=== PATIENT | male | born 1940 | race Caucasian/White ===

== ENCOUNTER 2018-04-05 18:03 | Inpatient (IN) | payer MEDICARE, OTHER ==
[~2018-04-05] VITALS: Ht 172.7 cm; Wt 72.7 kg
[~2018-04-05 18:03] MED LIST: ALBU6.7H INH; AMLO10TA PO; ASPI-611 PO; BUDE10.2 INH; FOLI1TAB16 PO; FURO-150 PO; IPRA3AMP9 NEB; LEVO500T89 PO; PHEN100C12 PO
[2018-04-05] MEDS ORDERED: normal saline 1000ML IV soln IV ONE (18:10)
[2018-04-05] MEDS ORDERED: ipratropium/albuterol 3ml nebule NEB ONE (18:10)
[2018-04-05] MEDS ORDERED: magnesium 2GM in 50ml NS 50 ML IV ONE (18:25)
[2018-04-05] MEDS ORDERED: methylPREDNISolone sod succ 125mg/2ml vial IV ONE (18:25)
[2018-04-05] MEDS ORDERED: vancomycin/NS 1 GM ADD-VANTAGE 250 ML IV ONE (18:25)
[2018-04-05] MEDS ORDERED: levoFLOXACIN-Levaquin 750MG/D5 150 ML IV ONE (18:25)
[2018-04-05 18:53] LABS: BASOPHILS # (AUTO) 0.1 X10'3 (0-0.2); BASOPHILS % (AUTO) 0.3 % (0-1); EOSINOPHILS % (AUTO) 0 % (0-6); HEMATOCRIT 24.9 % (42.0-52.0); HEMOGLOBIN 8.1 g/dl (14.0-17.9); LYMPHOCYTES # (AUTO) 0.7 X10'3 (1.1-4.8); LYMPHOCYTES % (AUTO) 3.2 % (21-51); MEAN CORPUSCULAR HEMOGLOBIN 31.2 PG (27.0-31.0); MEAN CORPUSCULAR HGB CONC 32.7 % (33.0-36.5); MEAN CORPUSCULAR VOLUME 95.6 FL (78-98); MEAN PLATELET VOLUME 7.1 FL (7.4-10.4); MONOCYTES # (AUTO) 1.9 X10'3 (0-0.9); MONOCYTES % (AUTO) 9.3 % (2-12); NEUTROPHILS % (AUTO) 87.2 % (42-75); PLATELET COUNT 313 X10'3 (140-440); RED CELL DISTRIBUTION WIDTH 14.2 % (11.5-14.5); WHITE BLOOD COUNT 20.6 X10'3 (4.5-11.0)
[2018-04-05 18:58] LABS: INR 0.9 INR; PARTIAL THROMBOPLASTIN TIME 26 SECONDS (22-32); PROTHROMBIN TIME 10.1 SECONDS (9.0-12.0)
[2018-04-05 19:07] LABS: ALANINE AMINOTRANSFERASE 64 U/L (12-78); ALBUMIN 2.9 G/DL (3.4-5.0); ALBUMIN/GLOBULIN RATIO 0.7 (1.1-1.5); ALKALINE PHOSPHATASE 79 IU/L (46-116); ANION GAP 12 (8-16); ASPARTATE AMINO TRANSFERASE 186 U/L (10-37); BILIRUBIN,TOTAL 0.6 MG/DL (0.1-1.0); BLOOD UREA NITROGEN 31 MG/DL (7-18); BUN/CREATININE RATIO 23.3 (5.4-32.0); CALCIUM 8.6 MG/DL (8.5-10.1); CHLORIDE 88 MMOL/L (99-107); CREATININE 1.33 MG/DL (0.60-1.10); GLUCOSE 106 MG/DL (70-104); POTASSIUM 4.5 MMOL/L (3.5-5.1); SODIUM 131 MMOL/L (135-145); TOTAL CARBON DIOXIDE 31.3 MMOL/L (24-32); TOTAL PROTEIN 7.3 G/DL (6.4-8.2); eGFR 52 ML/MIN
[2018-04-05 19:09] LABS: CREATINE KINASE 40 U/L (39-308); MAGNESIUM 1.7 MG/DL (1.5-2.4); PHOSPHORUS 3.8 MG/DL (2.3-4.5); TROPONIN I < 0.04 NG/ML (0.0-0.05)
--- NOTE | 2018-04-05 20:29 | NUR ---
AFTER PLACING TEMP PATEL, NO URINE OBTAINED. WILL CONTINUE TO MONITOR TO GET URINE SAMPLE SENT TO LAB.
[2018-04-05] MEDS ORDERED: magnesium hydroxide 30ml (MOM) UD suspension PO PRN (20:45)
[2018-04-05] MEDS ORDERED: acetaminophen 325mg tablet PO PRN (20:45)
[2018-04-05] MEDS ORDERED: mag hydrox/Alum hydrox/simeth 30ml oral suspension PO PRN (20:45)
[2018-04-05] MEDS ORDERED: HYDROcodone/acetaminophen 5mg/325mg tablet PO PRN (20:45)
[2018-04-05] MEDS ORDERED: morphine 4 MG/ML inj SYRINge IV PRN ×2 (20:45)
[2018-04-05] MEDS ORDERED: ondansetron/PF 4mg/2ml inj IV PRN (20:45)
[2018-04-05] MEDS: furosemide 10 MG/1 ML 10ml inj IV SCH (21:23)
--- NOTE | 2018-04-05 22:00 | NUR ---
Pt arrived to unit at 2200 via [facility] accompanied by RN. Pt stable upon arrival vitals within normal limits. Calm and receptive to care provided. Dr. Tobias HEDRICK at bedside upon pt arrival. ordered RT eval and treat. Will cont to monitor.
[2018-04-05 22:28] LABS: TOTAL CELLS COUNTED 100
[2018-04-05 22:29] LABS: PLATELET ESTIMATE NORMAL
[2018-04-05 23:00] VITALS: BP 118/56
[2018-04-05] MEDS: ipratropium/albuterol 3ml nebule NEB PRN (23:43)
[2018-04-06] VITALS (32 sets, daily range): BP systolic 90–158; BP diastolic 49–80
--- NOTE | 2018-04-06 00:02 | NUR ---
paged Dr. Tobias HEDRICK in regards to pt experiencing Afib with RVR rate in 150-160 sustaining. pending response. PAGER ID: [phone] MESSAGE: Tele [id number]-B Luke Moore 78/M. pt has been in A-fib with MD in 150s to mid 160s sustaining. please advise. MANI Hurst Tele# [phone]
[2018-04-06] MEDS ORDERED: digoxin 250mcg/ml 2ml ampule IV ONE ×2 (00:30→05:20)
--- NOTE | 2018-04-06 00:34 | NUR ---
Pt lung sounds wet, fluid volume excess. Paged Dr. Tobias HEDRICK requesting order for Lasix. PAGER ID: [phone] MESSAGE: Tele 3025-B Luke Moore Pt lungs also sound wet in upper lobes, may I get a order for IV Lasix. Aris RN #[phone]
[2018-04-06] MEDS ORDERED: furosemide 20 MG/2 ML vial IV ONE (00:45)
--- NOTE | 2018-04-06 05:13 | NUR ---
pt HR came down from 180s-190s down to 130s-140s. Paged and notified Dr. Tobias HEDRICK. Pending response. PAGER ID: [phone] MESSAGE: Tele 8099-B Luke Moore. FYI Pt Pulse rate hanging out in the 130s-140s. Please advise if you would like to try additional interventions to bring MA down further. thank you. Aris, RN #[phone]
[2018-04-06 05:28] LABS: ALBUMIN 2.1 G/DL (3.4-5.0); ANION GAP 9 (8-16); BLOOD UREA NITROGEN 29 MG/DL (7-18); BUN/CREATININE RATIO 27.4 (5.4-32.0); CALCIUM 7.9 MG/DL (8.5-10.1); CHLORIDE 92 MMOL/L (99-107); CREATININE 1.06 MG/DL (0.60-1.10); GLUCOSE 112 MG/DL (70-104); PHENYTOIN (DILANTIN) 1.8 UG/ML (10.0-20.0); POTASSIUM 4.4 MMOL/L (3.5-5.1); SODIUM 132 MMOL/L (135-145); TOTAL CARBON DIOXIDE 30.7 MMOL/L (24-32); eGFR 67 ML/MIN
[2018-04-06 05:39] LABS: BASOPHILS % (AUTO) 0 % (0-1); EOSINOPHILS # (AUTO) 0.1 X10'3 (0-0.9); EOSINOPHILS % (AUTO) 0.8 % (0-6); LYMPHOCYTES # (AUTO) 0.6 X10'3 (1.1-4.8); MEAN CORPUSCULAR HGB CONC 32.4 % (33.0-36.5); MEAN CORPUSCULAR VOLUME 95.6 FL (78-98); MEAN PLATELET VOLUME 7.2 FL (7.4-10.4); MONOCYTES # (AUTO) 0.3 X10'3 (0-0.9); MONOCYTES % (AUTO) 1.9 % (2-12); NEUTROPHILS # (AUTO) 13.2 X10'3 (1.8-7.7); NEUTROPHILS % (AUTO) 93.3 % (42-75); PLATELET COUNT 247 X10'3 (140-440); RED BLOOD COUNT 2.05 X10'6 (4.70-6.10); WHITE BLOOD COUNT 14.2 X10'3 (4.5-11.0)
[2018-04-06 05:48] LABS: HEMATOCRIT 19.6 % (42.0-52.0); HEMOGLOBIN 6.4 g/dl (14.0-17.9)
--- NOTE | 2018-04-06 05:55 | NUR ---
Paged Dr. Tobias HEDRICK in regards to Pt HH lab draw this morning resulting in 6.4/19.6, previous HH was 8.1/24.9. Pending response. PAGER ID: [phone] MESSAGE: Tele 2395-B Luke Moore. Critical low HH results of 6.4/19.6. HH previously 8.1/24.9. BP and O2 sat stable. Aris RN #[phone]
--- NOTE | 2018-04-06 07:04 | NUR ---
Problems reprioritized. Patient report given, questions answered & plan of care reviewed with MANI Cabrera.
[2018-04-06 07:06] LABS: MEAN CORPUSCULAR HEMOGLOBIN 31.2 PG (27.0-31.0); MEAN CORPUSCULAR HGB CONC 32.6 % (33.0-36.5); MEAN CORPUSCULAR VOLUME 95.5 FL (78-98); MEAN PLATELET VOLUME 7.1 FL (7.4-10.4); PLATELET COUNT 264 X10'3 (140-440); RED BLOOD COUNT 2.23 X10'6 (4.70-6.10); RED CELL DISTRIBUTION WIDTH 14.3 % (11.5-14.5); WHITE BLOOD COUNT 14.6 X10'3 (4.5-11.0)
[2018-04-06 07:11] LABS: HEMOGLOBIN 6.9 g/dl (14.0-17.9)
[2018-04-06 07:12] LABS: HEMATOCRIT 21.3 % (42.0-52.0)
--- NOTE | 2018-04-06 07:17 | NUR ---
PAGER ID: [phone] MESSAGE: Marija SINGLETON, [phone]. 3025B Pt. Oscar had a H/H of 6.9/ 21.3 Please advise, Thank you.
[2018-04-06] MEDS ORDERED: enoxaparin 40mg/0.4ml syringe SUBCUT SCH (08:00)
--- NOTE | 2018-04-06 10:06 | NUR ---
PAGER ID: [phone] MESSAGE: Deborah SINGLETON [phone] Oscar Pt has bloody diarrhea and does need a urologist consult, bladder is full.
[2018-04-06] MEDS ORDERED: LIDOcaine 2% 10ml TOPICAL JELLY (Urojet) MM STA (11:09)
--- NOTE | 2018-04-06 11:50 | NUR ---
UPON MORNING ASSESSMENT PT HAD WALTON RED HEMATURIA IN PATEL CATHETER BAG. AT 0900 PT WAS COMPLAINING OF INCREASING ABDOMINAL PAIN AND HAD SMALL AMOUNTS OF BLOOD COMING FROM HIS PENIS AROUND THE CATHETER. PT WAS ASSESSED FOR PLACEMENT AND IRRIGATED PER PROVIDER ORDER. PT WAS BLADDER SCANNED AND WAS FOUND TO HAVE OVER 1000ML IN BLADDER. CATHETER WAS REPLACED AND IRRIGATED AGAIN BY SEARCH AND RESCUE OFFICER. DR. PARNELL WAS NOTIFIED OF PT CONDITION AND CALLED UROLOGIST AT 1030. THE UROLOGIST DR. SAL ARRIVED TO UNIT AT 1110. DR. SAL WAS AT BEDSIDE WITH PT AND ASSESSED AND TREATED THE PT BY PLACING A NEW CATHETER AND IRRIGATING. RN'S TOLD TO IRRIGATE IF NECESSARY.
[2018-04-06] MEDS: cefepime 2g/NS 100ml ADVANTAGE 100 ML IV SCH ×2 (12:06→19:22)
[2018-04-06] MEDS: furosemide 10 MG/1 ML 10ml inj IV SCH ×2 (13:00→19:23)
[2018-04-06] MEDS: pantoprazole 40MG/NS 100ML BAG 100 ML IV SCH ×2 (13:01→19:23)
[2018-04-06 13:53] LABS: OCCULT BLOOD STOOL POSITIVE (Neg)
--- NOTE | 2018-04-06 14:10 | NUR ---
PAGER ID: [phone] MESSAGE: [id number] GIOVANY IS OCCULT STOOL POSSITIVE. HALI DENTON Addendum: 04/06/18 at 1410 by Hali Garsia RN Amended: Links added.
[2018-04-06] MEDS: ipratropium/albuterol 3ml nebule NEB PRN (15:43)
[2018-04-06 17:47] LABS: HEMATOCRIT 27.2 % (42.0-52.0); HEMOGLOBIN 9.1 g/dl (14.0-17.9); MEAN CORPUSCULAR HEMOGLOBIN 31.1 PG (27.0-31.0); MEAN CORPUSCULAR HGB CONC 33.4 % (33.0-36.5); MEAN CORPUSCULAR VOLUME 93.1 FL (78-98); MEAN PLATELET VOLUME 6.4 FL (7.4-10.4); PLATELET COUNT 256 X10'3 (140-440); RED BLOOD COUNT 2.92 X10'6 (4.70-6.10); RED CELL DISTRIBUTION WIDTH 14.6 % (11.5-14.5); WHITE BLOOD COUNT 12.8 X10'3 (4.5-11.0)
[2018-04-06] MEDS ORDERED: MIDAZolam 5mg/5ml vial ONE (17:59)
[2018-04-06] MEDS ORDERED: LIDOcaine Viscous 15ml cup ONE (17:59)
[2018-04-06] MEDS ORDERED: fentaNYL/PF 50MCG/1 ML 2ML syringe ONE (17:59)
--- NOTE | 2018-04-06 18:07 | NUR ---
UPON MORNING ASSESSMENT PT HAD WALTON HEMATURIA IN PATEL CATHETER BAG. AT 09 Addendum: 04/06/18 at 1826 by Marija Watt RN DISREGARD
[2018-04-06] MEDS: lactobacillus rhamnosus 10,000 MMU CELLS/CAPSULE PO SCH (20:00)
[2018-04-06] MEDS ORDERED: diltiazem 30mg tablet PO PRN (22:30)
[2018-04-07] MEDS: pantoprazole 40MG/NS 100ML BAG 100 ML IV SCH ×6 (01:00→21:00)
[2018-04-07 02:00] VITALS: BP 126/61
[2018-04-07 06:02] LABS: ALBUMIN 2.3 G/DL (3.4-5.0); ANION GAP 8 (8-16); BLOOD UREA NITROGEN 26 MG/DL (7-18); BUN/CREATININE RATIO 31.3 (5.4-32.0); CALCIUM 8.3 MG/DL (8.5-10.1); CHLORIDE 96 MMOL/L (99-107); CREATININE 0.83 MG/DL (0.60-1.10); GLUCOSE 121 MG/DL (70-104); POTASSIUM 3.8 MMOL/L (3.5-5.1); SODIUM 139 MMOL/L (135-145); TOTAL CARBON DIOXIDE 34.9 MMOL/L (24-32); eGFR 89 ML/MIN
[2018-04-07 06:29] LABS: BASOPHILS % (AUTO) 0 % (0-1); EOSINOPHILS # (AUTO) 0.1 X10'3 (0-0.9); HEMATOCRIT 28.5 % (42.0-52.0); HEMOGLOBIN 9.6 g/dl (14.0-17.9); LYMPHOCYTES # (AUTO) 0.6 X10'3 (1.1-4.8); LYMPHOCYTES % (AUTO) 4.5 % (21-51); MEAN CORPUSCULAR HEMOGLOBIN 31.5 PG (27.0-31.0); MEAN CORPUSCULAR HGB CONC 33.7 % (33.0-36.5); MEAN CORPUSCULAR VOLUME 93.4 FL (78-98); MEAN PLATELET VOLUME 6.5 FL (7.4-10.4); MONOCYTES # (AUTO) 1.9 X10'3 (0-0.9); MONOCYTES % (AUTO) 13.8 % (2-12); NEUTROPHILS % (AUTO) 80.7 % (42-75); PLATELET COUNT 264 X10'3 (140-440); RED BLOOD COUNT 3.05 X10'6 (4.70-6.10); RED CELL DISTRIBUTION WIDTH 15.6 % (11.5-14.5); WHITE BLOOD COUNT 13.6 X10'3 (4.5-11.0)
--- NOTE | 2018-04-07 06:55 | NUR ---
Problems reprioritized. Patient report given, questions answered & plan of care reviewed with Keli SINGLETON.
--- NOTE | 2018-04-07 06:58 | NUR ---
Patient in room PCU 3025. I have received report from Enmanuel SINGLETON and had the opportunity to ask questions and assume patient care, Patient resting comfortably was 99% on 4L turned patients O2 to 92% will recheck O2 Cannula in patients mouth.
[2018-04-07 07:15] VITALS: BP 110/69
[2018-04-07] MEDS: lactobacillus rhamnosus 10,000 MMU CELLS/CAPSULE PO SCH ×2 (07:48→20:00)
[2018-04-07] MEDS: furosemide 10 MG/1 ML 10ml inj IV SCH ×2 (07:49→20:47)
[2018-04-07] MEDS: cefepime 2g/NS 100ml ADVANTAGE 100 ML IV SCH ×2 (07:49→20:48)
[2018-04-07] MEDS: ipratropium/albuterol 3ml nebule NEB SCH ×4 (10:32→23:21)
--- NOTE | 2018-04-07 12:30 | NUR ---
Went to assess patient and patients bed was saturated with urine. Per MD orders ok to hand irrigate for clots irrigated jimenez with 60ml's sterile water and received approx 60ml's fluid around jimenez catheter insertion site. Patient has a 20F jimenez catheter in place. Paged Dr Fung for further orders.
[2018-04-07 12:58] VITALS: BP 123/61
[2018-04-07] MEDS ORDERED: hyoscyamine 0.125mg TAB.SUBL SL ONE (13:30)
--- NOTE | 2018-04-07 13:30 | NUR ---
Dr Wood called back aware that I had irrigated patient with fluid returning around the catheter itself. Received orders for a one time dose of Levsin SL for bladder spasms and to irrigate 30min after administration. Dr would also like us to get the urology cart to the floor in case we need it.
[2018-04-07] MEDS ORDERED: hyoscyamine 0.125mg TAB.SUBL SL PRN (14:30)
--- NOTE | 2018-04-07 14:30 | NUR ---
Dr Wood came to the floor and irrigated patient jimenez got 2 clots out. Stated to hand irrigate prn and give levsin if needing to irrigate again.
[2018-04-07 15:49] VITALS: BP 111/65
--- NOTE | 2018-04-07 18:19 | NUR ---
Problems reprioritized. Patient report given, questions answered & plan of care reviewed with Laverne SINGLETON.
--- NOTE | 2018-04-07 18:45 | NUR ---
Patient in room PCU 3025. I have received report from MANI Dickey and had the opportunity to ask questions and assume patient care.
[2018-04-07 19:00] VITALS: BP 123/53
[2018-04-07 23:00] VITALS: BP 111/57
[2018-04-08] MEDS: pantoprazole 40MG/NS 100ML BAG 100 ML IV SCH ×3 (01:00→11:46)
[2018-04-08 03:00] VITALS: BP 114/63
[2018-04-08] MEDS: ipratropium/albuterol 3ml nebule NEB SCH ×6 (03:12→23:08)
--- NOTE | 2018-04-08 06:19 | NUR ---
Problems reprioritized. Patient report given, questions answered & plan of care reviewed with MANI Myers.
--- NOTE | 2018-04-08 06:30 | NUR ---
Patient in room PCU 3025. I have received report from MANI Galloway and had the opportunity to ask questions and assume patient care.
[2018-04-08 07:00] VITALS: BP 122/65
[2018-04-08 07:07] LABS: BASOPHILS % (AUTO) 0.1 % (0-1); EOSINOPHILS # (AUTO) 0.1 X10'3 (0-0.9); EOSINOPHILS % (AUTO) 0.8 % (0-6); HEMATOCRIT 26.1 % (42.0-52.0); HEMOGLOBIN 8.4 g/dl (14.0-17.9); LYMPHOCYTES # (AUTO) 0.7 X10'3 (1.1-4.8); LYMPHOCYTES % (AUTO) 6.5 % (21-51); MEAN CORPUSCULAR HGB CONC 32.3 % (33.0-36.5); MEAN CORPUSCULAR VOLUME 92.9 FL (78-98); MEAN PLATELET VOLUME 6.4 FL (7.4-10.4); MONOCYTES # (AUTO) 1.5 X10'3 (0-0.9); MONOCYTES % (AUTO) 14.4 % (2-12); NEUTROPHILS # (AUTO) 8.2 X10'3 (1.8-7.7); NEUTROPHILS % (AUTO) 78.2 % (42-75); PLATELET COUNT 235 X10'3 (140-440); RED BLOOD COUNT 2.81 X10'6 (4.70-6.10); WHITE BLOOD COUNT 10.5 X10'3 (4.5-11.0)
[2018-04-08 07:10] LABS: ALBUMIN 2.1 G/DL (3.4-5.0); ANION GAP 5 (8-16); BLOOD UREA NITROGEN 17 MG/DL (7-18); BUN/CREATININE RATIO 23.9 (5.4-32.0); CALCIUM 8.2 MG/DL (8.5-10.1); CHLORIDE 99 MMOL/L (99-107); CREATININE 0.71 MG/DL (0.60-1.10); GLUCOSE 104 MG/DL (70-104); POTASSIUM 3.2 MMOL/L (3.5-5.1); SODIUM 142 MMOL/L (135-145); TOTAL CARBON DIOXIDE 37.7 MMOL/L (24-32); eGFR > 90 ML/MIN
[2018-04-08] MEDS: lactobacillus rhamnosus 10,000 MMU CELLS/CAPSULE PO SCH ×2 (08:00→20:00)
[2018-04-08] MEDS: cefepime 2g/NS 100ml ADVANTAGE 100 ML IV SCH ×2 (08:43→19:47)
[2018-04-08] MEDS: furosemide 10 MG/1 ML 10ml inj IV SCH (08:43)
[2018-04-08] MEDS: fluconazole-Diflucan 200mg/NS 100 ML IV SCH (09:52)
[2018-04-08 11:00] VITALS: BP 126/68
[2018-04-08] MEDS ORDERED: pantoprazole 40mg Tablet.DR PO SCH (12:20)
--- NOTE | 2018-04-08 12:36 | NUR ---
Paged Dr. Gilbert [facility] level. PAGER ID: [phone] MESSAGE: Pt Luke Moore in 1514H. K at 3.2, pt unable to tolerate PO meds at this time, no replacement protocol ordered. Thanks! Lucia SINGLETON [phone]
[2018-04-08] MEDS ORDERED: magnesium Cl slow-release 64mg tablet PO PRN (12:55)
[2018-04-08] MEDS ORDERED: magnesium 2GM in 50ml NS 50 ML IV PRN (12:55)
[2018-04-08] MEDS ORDERED: magnesium 4gm in 100ml NS 100 ML IV PRN (12:55)
[2018-04-08] MEDS ORDERED: potassium Cl 20 mEq SR tablet PO PRN ×2 (12:55)
[2018-04-08] MEDS ORDERED: potassium Cl 40MEQ/NS 500ml 500 ML IV PRN (12:55)
[2018-04-08 15:00] VITALS: BP 125/61
[2018-04-08] MEDS: potassium Cl 40MEQ/NS 500ml 500 ML IV PRN (16:10)
--- NOTE | 2018-04-08 18:31 | NUR ---
Problems reprioritized. Patient report given, questions answered & plan of care reviewed with MANI Galloway.
[2018-04-08 19:00] VITALS: BP 124/64
[2018-04-08] MEDS: pantoprazole 40 MG vial IV SCH (19:47)
[2018-04-08] MEDS: furosemide 40mg/4ml inj IV SCH (19:47)
[2018-04-08 23:00] VITALS: BP 126/73
[2018-04-09 03:00] VITALS: BP 114/66
[2018-04-09] MEDS: ipratropium/albuterol 3ml nebule NEB SCH ×6 (03:15→23:27)
[2018-04-09 05:32] LABS: BASOPHILS % (AUTO) 0.1 % (0-1); EOSINOPHILS # (AUTO) 0.1 X10'3 (0-0.9); EOSINOPHILS % (AUTO) 1.2 % (0-6); HEMATOCRIT 26.3 % (42.0-52.0); HEMOGLOBIN 8.7 g/dl (14.0-17.9); LYMPHOCYTES # (AUTO) 0.9 X10'3 (1.1-4.8); LYMPHOCYTES % (AUTO) 8.4 % (21-51); MEAN CORPUSCULAR HEMOGLOBIN 31.1 PG (27.0-31.0); MEAN CORPUSCULAR HGB CONC 33.1 % (33.0-36.5); MEAN PLATELET VOLUME 6.5 FL (7.4-10.4); MONOCYTES # (AUTO) 1.6 X10'3 (0-0.9); MONOCYTES % (AUTO) 15.6 % (2-12); NEUTROPHILS # (AUTO) 7.9 X10'3 (1.8-7.7); NEUTROPHILS % (AUTO) 74.7 % (42-75); PLATELET COUNT 231 X10'3 (140-440); RED CELL DISTRIBUTION WIDTH 14.9 % (11.5-14.5); WHITE BLOOD COUNT 10.5 X10'3 (4.5-11.0)
[2018-04-09 05:41] LABS: ALBUMIN 2.1 G/DL (3.4-5.0); ANION GAP 9 (8-16); BLOOD UREA NITROGEN 15 MG/DL (7-18); CALCIUM 8.4 MG/DL (8.5-10.1); CHLORIDE 99 MMOL/L (99-107); CREATININE 0.75 MG/DL (0.60-1.10); GLUCOSE 101 MG/DL (70-104); MAGNESIUM 1.3 MG/DL (1.5-2.4); POTASSIUM 3.1 MMOL/L (3.5-5.1); SODIUM 147 MMOL/L (135-145); TOTAL CARBON DIOXIDE 39.4 MMOL/L (24-32); eGFR > 90 ML/MIN
[2018-04-09 06:00] VITALS: BP 128/67
--- NOTE | 2018-04-09 06:12 | NUR ---
Patient in room PCU 3025. I have received report from MANI Galloway and had the opportunity to ask questions and assume patient care.
--- NOTE | 2018-04-09 06:18 | NUR ---
Problems reprioritized. Patient report given, questions answered & plan of care reviewed with MANI Ford.
[2018-04-09 07:29] LABS: TOTAL CELLS COUNTED 100
[2018-04-09 07:30] LABS: HYPOCHROMASIA 1+; PLATELET ESTIMATE NORMAL; TOXIC GRANULATION 1+
[2018-04-09] MEDS: pantoprazole 40 MG vial IV SCH ×2 (08:35→20:11)
[2018-04-09] MEDS: furosemide 40mg/4ml inj IV SCH ×2 (08:35→20:11)
[2018-04-09] MEDS: lactobacillus rhamnosus 10,000 MMU CELLS/CAPSULE PO SCH ×2 (08:35→20:11)
[2018-04-09] MEDS: cefepime 2g/NS 100ml ADVANTAGE 100 ML IV SCH ×2 (08:36→20:11)
[2018-04-09] MEDS: fluconazole-Diflucan 200mg/NS 100 ML IV SCH (09:01)
[2018-04-09] MEDS: potassium Cl 40MEQ/NS 500ml 500 ML IV PRN (10:36)
[2018-04-09 11:00] VITALS: BP 141/80
[2018-04-09 15:00] VITALS: BP 130/86
--- NOTE | 2018-04-09 18:12 | NUR ---
Problems reprioritized. Patient report given, questions answered & plan of care reviewed with MANI Allen.
--- NOTE | 2018-04-09 18:18 | NUR ---
Patient in room PCU 3025. I have received report from MANI Gibson and had the opportunity to ask questions and assume patient care.
[2018-04-09 19:00] VITALS: BP 158/62
--- NOTE | 2018-04-09 21:00 | NUR ---
paged rapid, pt difficult to arouse, responds to painful stimuli. ABG obtained, values concurrent with baseline. will continue to monitor
[2018-04-09 22:31] LABS: ABG BASE EXCESS 17.2 mmol/L (-2.0-3.0); ABG HCO3 43.6 mmol/L (22.0-26.0); ABG OXYGEN SATURATION 96.1 % (95-98); ABG PCO2 (T) 65.1 mmHg (35.0-48.0); ABG PH (T) 7.445 (7.350-7.450); ABG PO2 (T) 88.9 mmHg (83-108); ALLEN'S TEST Positive; FCOHb 0.3 % (0.5-1.5); FLOW 4 L/min; FMetHb 0.2 % (0.3-1.12); FO2Hb 95.6 % (94-100); PATIENT TEMPERATURE 37.2; TOTAL HEMOGLOBIN 9.7 G/dl (14.0-18.0)
[2018-04-09 23:00] VITALS: BP 127/68
[2018-04-10] MEDS: ipratropium/albuterol 3ml nebule NEB SCH ×5 (03:49→23:07)
[2018-04-10 05:41] LABS: BASOPHILS % (AUTO) 0.3 % (0-1); EOSINOPHILS # (AUTO) 0.1 X10'3 (0-0.9); EOSINOPHILS % (AUTO) 0.8 % (0-6); HEMATOCRIT 28.9 % (42.0-52.0); HEMOGLOBIN 9.4 g/dl (14.0-17.9); LYMPHOCYTES # (AUTO) 0.8 X10'3 (1.1-4.8); LYMPHOCYTES % (AUTO) 9.9 % (21-51); MEAN CORPUSCULAR HGB CONC 32.5 % (33.0-36.5); MEAN CORPUSCULAR VOLUME 95.4 FL (78-98); MEAN PLATELET VOLUME 6.6 FL (7.4-10.4); MONOCYTES # (AUTO) 1.5 X10'3 (0-0.9); MONOCYTES % (AUTO) 17.5 % (2-12); NEUTROPHILS % (AUTO) 71.5 % (42-75); PLATELET COUNT 211 X10'3 (140-440); RED BLOOD COUNT 3.03 X10'6 (4.70-6.10); RED CELL DISTRIBUTION WIDTH 13.6 % (11.5-14.5); WHITE BLOOD COUNT 8.4 X10'3 (4.5-11.0)
[2018-04-10 05:55] LABS: ALBUMIN 2.2 G/DL (3.4-5.0); BLOOD UREA NITROGEN 16 MG/DL (7-18); BUN/CREATININE RATIO 16.5 (5.4-32.0); CALCIUM 8.4 MG/DL (8.5-10.1); CHLORIDE 102 MMOL/L (99-107); CREATININE 0.97 MG/DL (0.60-1.10); GLUCOSE 119 MG/DL (70-104); MAGNESIUM 2.4 MG/DL (1.5-2.4); POTASSIUM 3.1 MMOL/L (3.5-5.1); SODIUM 149 MMOL/L (135-145); eGFR 75 ML/MIN
[2018-04-10 06:00] VITALS: BP 131/64
--- NOTE | 2018-04-10 06:11 | NUR ---
Patient in room PCU 3025. I have received report from MANI Galloway and had the opportunity to ask questions and assume patient care.
--- NOTE | 2018-04-10 06:23 | NUR ---
Problems reprioritized. Patient report given, questions answered & plan of care reviewed with MANI Ford.
[2018-04-10 06:27] LABS: ANION GAP 1 (8-16)
[2018-04-10 06:35] LABS: TOTAL CARBON DIOXIDE 46.3 MMOL/L (24-32)
--- NOTE | 2018-04-10 06:38 | NUR ---
Called Dr Pratt about CO2 46.3. Ask for previous level and later said "ok thanks." No new orders given.
[2018-04-10] MEDS: fluconazole-Diflucan 200mg/NS 100 ML IV SCH (08:00)
[2018-04-10] MEDS: furosemide 40mg/4ml inj IV SCH ×2 (08:00→20:05)
[2018-04-10] MEDS: cefepime 2g/NS 100ml ADVANTAGE 100 ML IV SCH ×2 (08:00→20:05)
[2018-04-10] MEDS: pantoprazole 40 MG vial IV SCH ×2 (08:00→20:05)
[2018-04-10] MEDS: lactobacillus rhamnosus 10,000 MMU CELLS/CAPSULE PO SCH ×2 (08:23→20:05)
--- NOTE | 2018-04-10 09:51 | NUR ---
Initial: Pt admitted with acute hypoxic resp failure, SOB, and GI bleed. Pt s/p endoscopy which shows Dottie esophagitis and nonbleeding gastric ulcer and gastritis per MD notes. Pt has had a BSS with recommendations of NPO and to reassess. SWEATBAND PERFORATOR did a repeat BSS 04/09 with recommendations of pureed diet with nectar thick liquids which pt is now receiving, per SWEATBAND PERFORATOR pt tolerating thickened liquids. Documented PO intake 75/25/25% at dinner last PM, only meal documented. CM requesting family meeting to discuss the possibility of feeding tube placement for pt as pt is unable to make own decisions per MD notes. Recommend continuing with PO diet with the addition of ONS if necessary in order to meet nutrient needs. LBM 04/09. No edema. Will continue to follow. Recommendations: 1) Continue with pureed nectar thick diet per SWEATBAND PERFORATOR 2) Monitor need for ONS 3) Wt per rx Addendum: 04/10/18 at [address] Amended: Links added.
[2018-04-10] MEDS: potassium Cl 40MEQ/NS 500ml 500 ML IV PRN (10:11)
[2018-04-10 11:00] VITALS: BP 106/52
[2018-04-10 14:31] LABS: ABG BASE EXCESS 22.1 mmol/L (-2.0-3.0); ABG HCO3 48.8 mmol/L (22.0-26.0); ABG OXYGEN SATURATION 89.9 % (95-98); ABG PCO2 (T) 67.9 mmHg (35.0-48.0); ABG PH (T) 7.474 (7.350-7.450); ABG PO2 (T) 54.2 mmHg (83-108); ALLEN'S TEST Positive; FCOHb 0.1 % (0.5-1.5); FLOW 3 L/min; FO2Hb 89.8 % (94-100); TOTAL HEMOGLOBIN 9.8 G/dl (14.0-18.0)
--- NOTE | 2018-04-10 14:36 | NUR ---
PAGER ID: [phone] MESSAGE: 3025B Luke Moore: TAWANA results are in. MANI Ford Ext [phone]
[2018-04-10 15:00] VITALS: BP 120/63
--- NOTE | 2018-04-10 18:28 | NUR ---
Problems reprioritized. Patient report given, questions answered & plan of care reviewed with MANI Hurst.
[2018-04-10 19:00] VITALS: BP 129/71
[2018-04-10] MEDS: acetaZOLAMIDE 250mg tablet PO SCH (22:56)
[2018-04-10 23:00] VITALS: BP 120/66
[2018-04-11] MEDS: ipratropium/albuterol 3ml nebule NEB SCH ×6 (02:44→23:00)
[2018-04-11 03:00] VITALS: BP 133/70
[2018-04-11 05:33] LABS: MAGNESIUM 1.9 MG/DL (1.5-2.4); POTASSIUM 3.1 MMOL/L (3.5-5.1)
[2018-04-11 06:00] VITALS: BP 126/69
--- NOTE | 2018-04-11 06:07 | NUR ---
Patient in room PCU 3025. I have received report from MANI Hurst and had the opportunity to ask questions and assume patient care.
--- NOTE | 2018-04-11 06:10 | NUR ---
Problems reprioritized. Patient report given, questions answered & plan of care reviewed with MANI Ford.
[2018-04-11] MEDS: acetaZOLAMIDE 250mg tablet PO SCH ×2 (07:51→20:18)
[2018-04-11] MEDS: lactobacillus rhamnosus 10,000 MMU CELLS/CAPSULE PO SCH ×2 (07:51→20:18)
[2018-04-11] MEDS: pantoprazole 40 MG vial IV SCH ×2 (07:52→20:18)
[2018-04-11] MEDS: fluconazole-Diflucan 200mg/NS 100 ML IV SCH (07:52)
[2018-04-11] MEDS: cefepime 2g/NS 100ml ADVANTAGE 100 ML IV SCH ×2 (07:52→20:25)
[2018-04-11] MEDS: furosemide 40mg/4ml inj IV SCH ×2 (07:52→20:18)
[2018-04-11] MEDS: potassium Cl 40MEQ/NS 500ml 500 ML IV PRN (10:57)
[2018-04-11 11:00] VITALS: BP 125/71
[2018-04-11 15:00] VITALS: BP 130/66
--- NOTE | 2018-04-11 18:28 | NUR ---
PAGER ID: [phone] MESSAGE: [phone] Pedro Sandovalchachasylvia. EKG done and in chart. Tolu Encarnacion said no stemi, but it is here if you want to take a look. MANI Ford Ext [phone] Addendum: 04/11/18 at 1840 by Logan Montgomery RN wrong patient
--- NOTE | 2018-04-11 18:30 | NUR ---
WLIIAN peter assessed EKG and said no Stemi. Addendum: 04/11/18 at 1840 by Logan Montgomery RN wrong patient
--- NOTE | 2018-04-11 18:30 | NUR ---
Patient in room PCU 3025. I have received report from MANI oFrd and had the opportunity to ask questions and assume patient care.
--- NOTE | 2018-04-11 18:38 | NUR ---
Problems reprioritized. Patient report given, questions answered & plan of care reviewed with MANI Myers.
[2018-04-11 19:00] VITALS: BP 121/74
[2018-04-11] MEDS: potassium Cl oral solution 20 MEQ/15 ML PO SCH (20:19)
[2018-04-11 23:00] VITALS: BP 115/71
[2018-04-12] MEDS: ipratropium/albuterol 3ml nebule NEB SCH ×6 (02:32→23:20)
[2018-04-12 03:00] VITALS: BP 129/75
[2018-04-12 05:47] LABS: MAGNESIUM 1.9 MG/DL (1.5-2.4)
[2018-04-12 06:00] VITALS: BP 130/66
--- NOTE | 2018-04-12 06:21 | NUR ---
Patient in room PCU 3025. I have received report from MANI Myers and had the opportunity to ask questions and assume patient care.
--- NOTE | 2018-04-12 06:27 | NUR ---
Problems reprioritized. Patient report given, questions answered & plan of care reviewed with MANI Richardson.
--- NOTE | 2018-04-12 07:03 | NUR ---
Notified Dr. Collado of critical K of 3.0 this am. awaiting further orders. patient stable, VSS. will continue to monitor.
[2018-04-12] MEDS: pantoprazole 40 MG vial IV SCH ×2 (07:24→20:23)
[2018-04-12] MEDS: potassium Cl oral solution 20 MEQ/15 ML PO SCH ×2 (07:25→20:21)
[2018-04-12] MEDS: furosemide 40mg/4ml inj IV SCH ×2 (07:25→20:23)
[2018-04-12] MEDS: lactobacillus rhamnosus 10,000 MMU CELLS/CAPSULE PO SCH ×2 (07:25→20:23)
[2018-04-12] MEDS: acetaZOLAMIDE 250mg tablet PO SCH ×2 (07:25→20:30)
[2018-04-12] MEDS: cefepime 2g/NS 100ml ADVANTAGE 100 ML IV SCH ×2 (07:26→20:30)
[2018-04-12] MEDS ORDERED: potassium Cl 20 mEq SR tablet PO PRN (08:15)
[2018-04-12] MEDS ORDERED: potassium Cl 40MEQ/NS 500ml 500 ML IV PRN ×2 (08:15)
[2018-04-12] MEDS: potassium Cl 20 mEq SR tablet PO PRN ×3 (09:02→20:23)
[2018-04-12] MEDS: fluconazole-Diflucan 200mg/NS 100 ML IV SCH (10:00)
[2018-04-12 11:00] VITALS: BP 146/75
--- NOTE | 2018-04-12 11:56 | NUR ---
Calorie count consult: Calorie count to start 04/12-04/15 dinner. D/w RN and dietary. Will continue to follow. Addendum: 04/12/18 at [address] Amended: Links added.
[2018-04-12 15:00] VITALS: BP 116/62
--- NOTE | 2018-04-12 18:35 | NUR ---
Problems reprioritized. Patient report given, questions answered & plan of care reviewed with MANI Myers.
[2018-04-12 19:00] VITALS: BP 110/55
[2018-04-12 23:00] VITALS: BP 119/71
[2018-04-13 03:00] VITALS: BP 103/66
[2018-04-13] MEDS: ipratropium/albuterol 3ml nebule NEB SCH ×6 (04:02→22:42)
[2018-04-13 06:00] VITALS: BP 133/63
--- NOTE | 2018-04-13 06:15 | NUR ---
Problems reprioritized. Patient report given, questions answered & plan of care reviewed with MANI Pizarro.
--- NOTE | 2018-04-13 07:02 | NUR ---
Patient in room PCU 3025. I have received report from Lucia SINGLETON and had the opportunity to ask questions and assume patient care.
[2018-04-13] MEDS: cefepime 2g/NS 100ml ADVANTAGE 100 ML IV SCH ×2 (08:43→20:24)
[2018-04-13] MEDS: fluconazole-Diflucan 200mg/NS 100 ML IV SCH (08:43)
[2018-04-13] MEDS: potassium Cl oral solution 20 MEQ/15 ML PO SCH ×2 (08:47→20:29)
[2018-04-13] MEDS: lactobacillus rhamnosus 10,000 MMU CELLS/CAPSULE PO SCH ×2 (08:47→20:30)
[2018-04-13] MEDS: acetaZOLAMIDE 250mg tablet PO SCH ×2 (08:47→20:30)
[2018-04-13] MEDS: furosemide 40mg/4ml inj IV SCH ×2 (08:47→20:29)
[2018-04-13] MEDS: pantoprazole 40 MG vial IV SCH ×2 (09:01→20:29)
[2018-04-13 11:00] VITALS: BP 139/64
--- NOTE | 2018-04-13 11:00 | NUR ---
Pt was re checked for pain and did not want pain medications at this time.
--- NOTE | 2018-04-13 14:38 | NUR ---
Problems reprioritized. Patient report given, questions answered & plan of care reviewed with Hali SINGLETON.
[2018-04-13 15:00] VITALS: BP 130/64
--- NOTE | 2018-04-13 15:20 | NUR ---
Calcount 04/13: Pending calcount papers from floors. Documented that pt ate only 50% of starch at breakfast this AM however documented intake 75% x all at lunch this afternoon. Per MD note pt tolerating modified diet. Will f/u tomorrow with patient's PO intake. Calorie count consult: Calorie count to start 04/12-04/15 dinner. D/w RN and dietary. Will continue to follow. Initial: Pt admitted with acute hypoxic resp failure, SOB, and GI bleed. Pt s/p endoscopy which shows Dottie esophagitis and nonbleeding gastric ulcer and gastritis per MD notes. Pt has had a BSS with recommendations of NPO and to reassess. AUTOMATIC SHIRRING MACHINE OPERATOR did a repeat BSS 04/09 with recommendations of pureed diet with nectar thick liquids which pt is now receiving, per AUTOMATIC SHIRRING MACHINE OPERATOR pt tolerating thickened liquids. Documented PO intake 75/25/25% at dinner last PM, only meal documented. CM requesting family meeting to discuss the possibility of feeding tube placement for pt as pt is unable to make own decisions per MD notes. Recommend continuing with PO diet with the addition of ONS if necessary in order to meet nutrient needs. LBM 04/09. No edema. Will continue to follow. Recommendations: 1) Continue with pureed nectar thick diet per AUTOMATIC SHIRRING MACHINE OPERATOR 2) Monitor need for ONS 3) Wt per rx Addendum: 04/13/18 at [address] Amended: Links added.
[2018-04-13 19:00] VITALS: BP 131/71
[2018-04-13 23:00] VITALS: BP 118/65
[2018-04-14] MEDS: ipratropium/albuterol 3ml nebule NEB SCH ×5 (02:52→23:00)
[2018-04-14 03:00] VITALS: BP 124/65
[2018-04-14 06:00] VITALS: BP 129/63
--- NOTE | 2018-04-14 06:40 | NUR ---
Problems reprioritized. Patient report given, questions answered & plan of care reviewed with MANI Rodriguez.
--- NOTE | 2018-04-14 06:57 | NUR ---
Patient in room PCU 3025. I have received report from MANI KRISHNA and had the opportunity to ask questions and assume patient care.
[2018-04-14] MEDS: lactobacillus rhamnosus 10,000 MMU CELLS/CAPSULE PO SCH ×2 (09:44→20:06)
[2018-04-14] MEDS: pantoprazole 40 MG vial IV SCH ×2 (09:44→20:05)
[2018-04-14] MEDS: cefepime 2g/NS 100ml ADVANTAGE 100 ML IV SCH ×2 (09:44→20:03)
[2018-04-14] MEDS: acetaZOLAMIDE 250mg tablet PO SCH ×2 (09:44→20:06)
[2018-04-14] MEDS: furosemide 40mg/4ml inj IV SCH ×2 (09:44→20:13)
[2018-04-14] MEDS: potassium Cl oral solution 20 MEQ/15 ML PO SCH ×2 (09:45→20:06)
[2018-04-14] MEDS: fluconazole-Diflucan 200mg/NS 100 ML IV SCH (10:44)
[2018-04-14 11:00] VITALS: BP 120/67
[2018-04-14 15:00] VITALS: BP 101/66
--- NOTE | 2018-04-14 15:58 | NUR ---
Calcount 04/14: Although documented that pt ate 75% of lunch yesterday, calorie count papers indicate pt refused lunch and consumed a total of 91 kcal and 1 g protein yesterday 04/13 not meeting nutrient needs. Pt seen at bedside denies any food preferences or ONS at this time. Encouraged pt to eat and think of food that he would like to eat. Pt without a BM since 04/09 which may be contributing to poor PO intake. Pt with MoM PRN not yet given, d/w RN, pt has now received MoM and routine Colace has been added to med list. Pt may benefit from appetite stimulant or nutrition support if he continues with such poor PO intake. Will continue to follow. Calcount 04/13: Pending calcount papers from floors. Documented that pt ate only 50% of starch at breakfast this AM however documented intake 75% x all at lunch this afternoon. Per MD note pt tolerating modified diet. Will f/u tomorrow with patient's PO intake. Calorie count consult: Calorie count to start 04/12-04/15 dinner. D/w RN and dietary. Will continue to follow. Initial: Pt admitted with acute hypoxic resp failure, SOB, and GI bleed. Pt s/p endoscopy which shows Dottie esophagitis and nonbleeding gastric ulcer and gastritis per MD notes. Pt has had a BSS with recommendations of NPO and to reassess. SURVEILLANCE OPERATOR did a repeat BSS 04/09 with recommendations of pureed diet with nectar thick liquids which pt is now receiving, per SURVEILLANCE OPERATOR pt tolerating thickened liquids. Documented PO intake 75/25/25% at dinner last PM, only meal documented. CM requesting family meeting to discuss the possibility of feeding tube placement for pt as pt is unable to make own decisions per MD notes. Recommend continuing with PO diet with the addition of ONS if necessary in order to meet nutrient needs. LBM 04/09. No edema. Will continue to follow. Recommendations: 1) Continue with pureed nectar thick diet per SURVEILLANCE OPERATOR 2) Monitor need for ONS 3) Encourage PO intake 4) Wt per rx Addendum: 04/14/18 at [address] Amended: Links added.
--- NOTE | 2018-04-14 16:15 | NUR ---
REPORT CALLED TO MANI MATTHEWS NEURO FLOOR.
--- NOTE | 2018-04-14 16:45 | NUR ---
TRANSFERRED TO NEURO FLOOR ROOM 4008A VIA WC. GARLAND CHANEY.
--- NOTE | 2018-04-14 17:09 | NUR ---
received report from Michael. patient was alert and oriented at time of arrival. patients vitals were taken along with skin check.
[2018-04-14 18:00] VITALS: BP 133/70
--- NOTE | 2018-04-14 19:33 | NUR ---
REPORT REC'D FROM MANI MATTHEWS.
[2018-04-14] MEDS: docusate sod 100mg capsule PO SCH (20:06)
[2018-04-14 22:00] VITALS: BP 124/60
[2018-04-15] MEDS: ipratropium/albuterol 3ml nebule NEB SCH ×6 (04:00→23:00)
--- NOTE | 2018-04-15 06:36 | NUR ---
REPORT GIVEN TO MANI MATTHEWS.
--- NOTE | 2018-04-15 06:43 | NUR ---
RECEIVED REPORT FROM OMAR SINGLETON
[2018-04-15 06:52] VITALS: BP 127/67
[2018-04-15] MEDS: cefepime 2g/NS 100ml ADVANTAGE 100 ML IV SCH (08:00)
[2018-04-15] MEDS: furosemide 40mg/4ml inj IV SCH ×2 (08:00→20:23)
[2018-04-15] MEDS: lactobacillus rhamnosus 10,000 MMU CELLS/CAPSULE PO SCH ×2 (08:00→20:22)
[2018-04-15] MEDS: fluconazole-Diflucan 200mg/NS 100 ML IV SCH (08:00)
[2018-04-15] MEDS: pantoprazole 40 MG vial IV SCH ×2 (08:00→20:23)
[2018-04-15] MEDS: acetaZOLAMIDE 250mg tablet PO SCH ×2 (08:00→20:22)
[2018-04-15] MEDS: potassium Cl oral solution 20 MEQ/15 ML PO SCH ×2 (08:00→20:22)
[2018-04-15] MEDS: docusate sod 100mg capsule PO SCH ×2 (08:00→20:22)
--- NOTE | 2018-04-15 11:21 | NUR ---
Calcount 04/15: Pt refused all meals w/ 0% PO yesterday not meeting needs. Per MD note pt shares he doesn't want to eat but unsure why he doesn't feel like eating. First BM today since 04/09 per RN report. Dottie esophagitis upper third per MD note w/ non-bleeding gastric ulcer. [place] thickened high protein smoothie made w/ magic cup and thickened milk TIDWM added for additional protein/kcal needs and will be easier on throat. Given PO hx since admit and associated minor fat/muscle wasting pt qualifies for severe malnutrition at this time; MD notified. Recommendations: 1) Continue with pureed nectar thick diet per NURSING CONSULTANT 2) thickened high protein smoothie TIDWM w/ magic cup 3) Encourage PO intake 4) weekly wts Addendum: 04/15/18 at [address] Amended: Links added.
[2018-04-15 18:00] VITALS: BP 112/67
[2018-04-15 22:00] VITALS: BP 110/66
[2018-04-16] MEDS: ipratropium/albuterol 3ml nebule NEB SCH ×6 (03:00→23:00)
[2018-04-16 06:00] VITALS: BP 102/64
--- NOTE | 2018-04-16 06:08 | NUR ---
REPORT GIVEN TO MANI MATTHEWS.
[2018-04-16] MEDS: furosemide 40mg/4ml inj IV SCH ×2 (07:55→19:46)
[2018-04-16] MEDS: docusate sod 100mg capsule PO SCH ×2 (08:00→20:00)
[2018-04-16] MEDS: acetaZOLAMIDE 250mg tablet PO SCH ×2 (08:00→19:46)
[2018-04-16] MEDS: potassium Cl oral solution 20 MEQ/15 ML PO SCH ×2 (08:00→19:46)
[2018-04-16] MEDS: pantoprazole 40 MG vial IV SCH ×2 (08:00→19:46)
[2018-04-16] MEDS: fluconazole-Diflucan 200mg/NS 100 ML IV SCH (08:00)
[2018-04-16] MEDS: lactobacillus rhamnosus 10,000 MMU CELLS/CAPSULE PO SCH ×2 (08:00→19:46)
[2018-04-16 10:00] VITALS: BP 123/53
--- NOTE | 2018-04-16 10:13 | NUR ---
Calcount 04/15: Pt PO increased w/ thickened high pro smoothie. Only received kcal count form for dinner 04/15; additional intake averaged given documented PO meals. Total intake ~1283kcals, 50g protein almost meeting protein needs. Will continue thickened ONS and monitor for additional ONS needs. LBM 04/15. Recommendations: 1) Continue with pureed nectar thick diet per MACHINE ASSEMBLER SUPERVISOR 2) thickened high protein smoothie TIDWM w/ magic cup 3) Encourage PO intake 4) weekly wts Addendum: 04/16/18 at [address] Amended: Links added.
[2018-04-16 18:00] VITALS: BP 108/64
--- NOTE | 2018-04-16 18:32 | NUR ---
REPORT REC'D FROM MANI MATTHEWS.
[2018-04-16 22:00] VITALS: BP 100/54
[2018-04-17] MEDS: ipratropium/albuterol 3ml nebule NEB SCH ×3 (02:59→12:16)
[2018-04-17 06:00] VITALS: BP 119/64
--- NOTE | 2018-04-17 06:05 | NUR ---
Patient in room ORTHO 4008. I have received report from OMAR SINGLETON and had the opportunity to ask questions and assume patient care.
--- NOTE | 2018-04-17 06:33 | NUR ---
REPORT GIVEN TO MANI WELCH.
[2018-04-17] MEDS: furosemide 40mg/4ml inj IV SCH (08:43)
[2018-04-17] MEDS: pantoprazole 40 MG vial IV SCH ×2 (08:43→19:24)
[2018-04-17] MEDS: fluconazole-Diflucan 200mg/NS 100 ML IV SCH (08:46)
[2018-04-17] MEDS: lactobacillus rhamnosus 10,000 MMU CELLS/CAPSULE PO SCH ×2 (09:45→19:24)
[2018-04-17] MEDS: acetaZOLAMIDE 250mg tablet PO SCH ×2 (09:45→19:24)
[2018-04-17] MEDS: docusate sod 100mg capsule PO SCH ×2 (09:45→19:24)
[2018-04-17] MEDS: potassium Cl oral solution 20 MEQ/15 ML PO SCH ×2 (09:49→19:24)
[2018-04-17 10:00] VITALS: BP 111/60
--- NOTE | 2018-04-17 12:20 | NUR ---
SS met w/pt & family member (nephew) @ pt's bedside. Pt was alert & oriented to person, place & situation. Pt is now eating again where as previously he had failed swallow tests. SS utilized CBT strategies & engage pt & nephew in dcp activities. Per discussion, nephew is now comfortable to have pt d/c home. Plan: CM will look into ordering a hospital bed & HH services. SS contacted the [facility] to obtain a post-hosp appointment for pt w/his PMD & request for IH services for pt. Pt completed necessary paperwork w/[facility] to re-certify his MediCal D/C destination is home. SS will continue to monitor to support dcp.
[2018-04-17 18:00] VITALS: BP 161/45
--- NOTE | 2018-04-17 18:00 | NUR ---
Problems reprioritized. Patient report given, questions answered & plan of care reviewed with NATHAN SINGLETON.
--- NOTE | 2018-04-17 18:50 | NUR ---
Patient in room ORTHO 4008. I have received report from MANI Armstrong and had the opportunity to ask questions and assume patient care. Patient sitting up and eating dinner at this time.
[2018-04-17] MEDS: furosemide 20MG tablet PO SCH (19:24)
[2018-04-17 22:06] VITALS: BP 118/64
[2018-04-18 06:00] VITALS: BP 107/54
--- NOTE | 2018-04-18 06:06 | NUR ---
Patient in room ORTHO 4008. I have received report from NATHAN SINGLETON and had the opportunity to ask questions and assume patient care.
--- NOTE | 2018-04-18 06:09 | NUR ---
Problems reprioritized. Patient report given, questions answered & plan of care reviewed with MANI Armstrong.
[2018-04-18] MEDS: lactobacillus rhamnosus 10,000 MMU CELLS/CAPSULE PO SCH ×2 (08:02→19:34)
[2018-04-18] MEDS: potassium Cl oral solution 20 MEQ/15 ML PO SCH ×2 (08:02→19:35)
[2018-04-18] MEDS: pantoprazole 40 MG vial IV SCH (08:02)
[2018-04-18] MEDS: docusate sod 100mg capsule PO SCH ×2 (08:02→19:35)
[2018-04-18] MEDS: furosemide 20MG tablet PO SCH ×2 (08:02→19:35)
[2018-04-18] MEDS: fluconazole-Diflucan 200mg/NS 100 ML IV SCH (08:02)
[2018-04-18] MEDS: acetaZOLAMIDE 250mg tablet PO SCH ×2 (08:02→19:34)
[2018-04-18 08:23] LABS: BASOPHILS # (AUTO) 0.1 X10'3 (0-0.2); BASOPHILS % (AUTO) 1.3 % (0-1); EOSINOPHILS # (AUTO) 0.1 X10'3 (0-0.9); HEMATOCRIT 28.5 % (42.0-52.0); HEMOGLOBIN 9.4 g/dl (14.0-17.9); LYMPHOCYTES # (AUTO) 1.4 X10'3 (1.1-4.8); MEAN CORPUSCULAR HEMOGLOBIN 30.8 PG (27.0-31.0); MEAN CORPUSCULAR HGB CONC 33.2 % (33.0-36.5); MEAN CORPUSCULAR VOLUME 92.7 FL (78-98); MEAN PLATELET VOLUME 8.6 FL (7.4-10.4); MONOCYTES # (AUTO) 0.7 X10'3 (0-0.9); MONOCYTES % (AUTO) 11.8 % (2-12); NEUTROPHILS # (AUTO) 3.6 X10'3 (1.8-7.7); NEUTROPHILS % (AUTO) 60.9 % (42-75); PLATELET COUNT 182 X10'3 (140-440); RED BLOOD COUNT 3.07 X10'6 (4.70-6.10); RED CELL DISTRIBUTION WIDTH 14.3 % (11.5-14.5); WHITE BLOOD COUNT 5.9 X10'3 (4.5-11.0)
[2018-04-18 08:35] LABS: ALBUMIN 2.7 G/DL (3.4-5.0); ANION GAP 8 (8-16); BLOOD UREA NITROGEN 29 MG/DL (7-18); CALCIUM 8.5 MG/DL (8.5-10.1); CHLORIDE 105 MMOL/L (99-107); CREATININE 1.26 MG/DL (0.60-1.10); GLUCOSE 96 MG/DL (70-104); POTASSIUM 3.6 MMOL/L (3.5-5.1); SODIUM 143 MMOL/L (135-145); TOTAL CARBON DIOXIDE 30.4 MMOL/L (24-32); eGFR 55 ML/MIN
[2018-04-18 18:00] VITALS: BP 114/73
--- NOTE | 2018-04-18 18:08 | NUR ---
Problems reprioritized. Patient report given, questions answered & plan of care reviewed with NATHAN SINGLETON.
[2018-04-18] MEDS: pantoprazole 40mg Tablet.DR PO SCH (19:34)
[2018-04-18 22:04] VITALS: BP 126/63
[2018-04-19 06:00] VITALS: BP 116/62
--- NOTE | 2018-04-19 06:10 | NUR ---
Patient in room ORTHO 4008. I have received report from NATHAN SINGLETON and had the opportunity to ask questions and assume patient care.
--- NOTE | 2018-04-19 06:30 | NUR ---
Problems reprioritized. Patient report given, questions answered & plan of care reviewed with MANI Armstrong.
[2018-04-19] MEDS: lactobacillus rhamnosus 10,000 MMU CELLS/CAPSULE PO SCH ×2 (08:44→19:58)
[2018-04-19] MEDS: furosemide 20MG tablet PO SCH ×2 (08:45→19:58)
[2018-04-19] MEDS: acetaZOLAMIDE 250mg tablet PO SCH ×2 (08:45→19:58)
[2018-04-19] MEDS: pantoprazole 40mg Tablet.DR PO SCH ×2 (08:45→19:58)
[2018-04-19] MEDS: potassium Cl oral solution 20 MEQ/15 ML PO SCH ×2 (08:45→19:58)
[2018-04-19] MEDS: fluconazole-Diflucan 200mg/NS 100 ML IV SCH (08:47)
[2018-04-19] MEDS: docusate sod 100mg capsule PO SCH ×2 (08:47→19:58)
[2018-04-19 10:00] VITALS: BP 114/61
--- NOTE | 2018-04-19 10:07 | NUR ---
Reassessment: Per AUTOMATION/CONTROLS MANAGER notes pt now tolerating pureed food with thin liquid. Documented PO intake seems to have improved with average intake 50%, although noted that pt refused breakfast this AM. Per MD progress notes pt likely to d/c home soon with [facility]. Will continue to follow. Recommendations: 1) Continue with pureed thin liquid diet per AUTOMATION/CONTROLS MANAGER 2) thickened high protein smoothie TIDWM w/ magic cup 3) Encourage PO intake 4) weekly wts Addendum: 04/19/18 at [address] Amended: Links added.
--- NOTE | 2018-04-19 12:32 | NUR ---
SS met w/pt & family member this morning to review dcp. Per discussion, pt's hospital bed will be delivered to the home either today or tomorrow, [facility], Pt's nephew will attend the post hosp appointment with pt to request [facility]. Pt's nephew brought in additional financial documents to complete pt's MediCal keira. SS will continue to monitor to support dcp.
[2018-04-19 18:00] VITALS: BP 143/79
--- NOTE | 2018-04-19 18:12 | NUR ---
Problems reprioritized. Patient report given, questions answered & plan of care reviewed with MARIANELA SINGLETON.
--- NOTE | 2018-04-19 18:28 | NUR ---
PATIENT REPORT RECEIVED FROM VANDANA SINGLETON.
[2018-04-19 22:00] VITALS: BP 127/77
[2018-04-20 06:00] VITALS: BP 118/71
--- NOTE | 2018-04-20 06:47 | NUR ---
PATIENT REPORT GIVEN TO CISCO SINGLETON.
--- NOTE | 2018-04-20 07:07 | NUR ---
Patient in room ORTHO 4008. I have received report from Isi Jimenez and had the opportunity to ask questions and assume patient care.
[2018-04-20] MEDS: acetaZOLAMIDE 250mg tablet PO SCH (08:36)
[2018-04-20] MEDS: lactobacillus rhamnosus 10,000 MMU CELLS/CAPSULE PO SCH (08:36)
[2018-04-20] MEDS: fluconazole-Diflucan 200mg/NS 100 ML IV SCH (08:36)
[2018-04-20] MEDS: docusate sod 100mg capsule PO SCH (08:36)
[2018-04-20] MEDS: potassium Cl oral solution 20 MEQ/15 ML PO SCH (08:37)
[2018-04-20] MEDS: pantoprazole 40mg Tablet.DR PO SCH (08:37)
[2018-04-20] MEDS: furosemide 20MG tablet PO SCH (08:41)
[2018-04-20 08:42] VITALS: BP 111/71
[2018-04-20 10:00] VITALS: BP 134/80
[2018-04-20] MEDS ORDERED: PANT40TA4 PO (12:08)
[2018-04-20] MEDS ORDERED: ACET250T3 PO (12:08)
[2018-04-20] MEDS ORDERED: HYOS0.1277 SL (12:08)
[2018-04-20] MEDS ORDERED: POTA10TA10 PO (12:11)
--- NOTE | 2018-04-20 12:39 | NUR ---
Patient discharged home with all belongings, Verna cargo picked patient up in wheelchair, paper RX sent with patient, IV taken out, d/c instructions went over with nephew
--- NOTE | 2018-04-22 09:34 | NUR ---
Pt. d/c'd home with nephew, [facility] will meet pt tomorrow @ home. SS referral closed.
== END 2018-04-20 12:33 | disposition home health service (06) | DRG 871 ==
LOC: ER 18:06 → ED HOLD 20:43 → PCU 3S 22:11 → ORTHO 4S 04-14 16:45
PROVIDERS: ADMIT Internal Medicine; ATTEND Internal Medicine
PROC: 30233N1 Transfusion of Nonautologous Red Blood Cells into Peripheral Vein, Percutaneous Approach (ICD-10-PCS; principal; 2018-04-06)
PROC: 0T9B80Z Drainage of Bladder with Drainage Device, Via Natural or Artificial Opening Endoscopic (ICD-10-PCS; 2018-04-06)
PROC: 0DB18ZX Excision of Upper Esophagus, Via Natural or Artificial Opening Endoscopic, Diagnostic (ICD-10-PCS; 2018-04-06)
PROC: 0DB68ZX Excision of Stomach, Via Natural or Artificial Opening Endoscopic, Diagnostic (ICD-10-PCS; 2018-04-06)
DX: A41.9 Sepsis, unspecified organism (principal); J96.21 Acute and chronic respiratory failure with hypoxia; J18.1 Lobar pneumonia, unspecified organism; T83.83XA Hemorrhage due to genitourinary prosthetic devices, implants and grafts, initial encounter; D62 Acute posthemorrhagic anemia; B37.81 Candidal esophagitis; J44.0 Chronic obstructive pulmonary disease with (acute) lower respiratory infection; J44.1 Chronic obstructive pulmonary disease with (acute) exacerbation; N17.9 Acute kidney failure, unspecified; N13.8 Other obstructive and reflux uropathy; E87.2 Acidosis; Y84.6 Urinary catheterization as the cause of abnormal reaction of the patient, or of later complication, without mention of misadventure at the time of the procedure; K25.9 Gastric ulcer, unspecified as acute or chronic, without hemorrhage or perforation; E87.6 Hypokalemia; F10.20 Alcohol dependence, uncomplicated; F17.210 Nicotine dependence, cigarettes, uncomplicated; R33.9 Retention of urine, unspecified; N40.1 Benign prostatic hyperplasia with lower urinary tract symptoms; N48.89 Other specified disorders of penis; I11.0 Hypertensive heart disease with heart failure; I27.29 Other secondary pulmonary hypertension; I50.9 Heart failure, unspecified; K29.70 Gastritis, unspecified, without bleeding; R31.0 Gross hematuria; Z66 Do not resuscitate; Z79.51 Long term (current) use of inhaled steroids; Z82.49 Family history of ischemic heart disease and other diseases of the circulatory system; Z83.3 Family history of diabetes mellitus; Z86.73 Personal history of transient ischemic attack (TIA), and cerebral infarction without residual deficits; Z87.11 Personal history of peptic ulcer disease; Y92.89 Other specified places as the place of occurrence of the external cause
CPT/HCPCS: 36415; 36600; 43239; 71045; 80048; 80053; 80185; 82272; 82550; 82803; 82948; 83605; 83735; 83880; 84100; 84132; 84145; 84484; 85018; 85025; 85027; 85610; 85730; 86885; 86900; 86901; 86920; 87040; 87070; 87502; 87503; 88305; 88312; 92616; 93005; 93306; 94640; 94760; 96365; 96367; 96368; 96375; 97110; 97116; 97162; 97530; 99152; 99291; A4620; C9113; G0378; J0692; J1160; J1450; J1940; J1956; J2250; J2270; J2930; J3010; J3370; J3475; J3480; J7030; P9016

== ENCOUNTER 2018-07-21 13:20 | Inpatient (IN) | payer MEDICARE, MEDICAID ==
[~2018-07-21] VITALS: Ht 170.2 cm; Wt 81.0 kg
--- NOTE | 2018-07-21 | NUR ---
PATIENT ARRIVED ON UNIT VIA GURNEY. PATIENT HARD OF HEARING. MAINTENANCE FLUIDS RUNNING. HIGH BLOOD PRESSURE. NOTIFIED. HYDRALAZINE GIVEN. BELONGING AT BEDSIDE. PATEL IN PLACE. ON TELE. BED ALARM ON.
[~2018-07-21 13:20] MED LIST changes: +ACET250T3 PO; -AMLO10TA PO; +HYOS0.1277 SL; -LEVO500T89 PO; +PANT40TA4 PO
[2018-07-21] MEDS ORDERED: normal saline 1000ML IV soln IV ONE (13:30)
[2018-07-21] MEDS ORDERED: normal saline 1000ML IV soln IVB ONE (13:30)
[2018-07-21] MEDS ORDERED: CefTRIAXone 2gm/D5W 50ml 50 ML IV ONE (13:30)
--- NOTE | 2018-07-21 13:50 | NUR ---
Called patients nephewOscar, who stated that around 1130 today patient began to have difficulty breathing and was stating that he could not breath. Per family patient has been fine prior to this. Patient does have a home health nurse that comes out to see him daily, but Oscar states that she "just cleans him up." Oscar denies patient having any fevers, states that he has had a intermittent productive cough. Oscar gave me the list of patients medications at which I updated in patients chart. States that he has had a history of seizures, but does not see any medications for seizures currently. Rohan SINGLETON aware of conversation with family.
[2018-07-21 13:56] LABS: BASOPHILS % (AUTO) 0.5 % (0-1); EOSINOPHILS # (AUTO) 0.1 X10'3 (0-0.9); EOSINOPHILS % (AUTO) 1.4 % (0-6); HEMATOCRIT 36.8 % (42.0-52.0); HEMOGLOBIN 12.1 g/dl (14.0-17.9); LYMPHOCYTES # (AUTO) 0.6 X10'3 (1.1-4.8); MEAN CORPUSCULAR HEMOGLOBIN 29.4 PG (27.0-31.0); MEAN CORPUSCULAR HGB CONC 32.9 g/dL (33.0-36.5); MEAN CORPUSCULAR VOLUME 89.3 FL (78-98); MEAN PLATELET VOLUME 7.8 FL (7.4-10.4); MONOCYTES # (AUTO) 0.5 X10'3 (0-0.9); MONOCYTES % (AUTO) 8.2 % (2-12); NEUTROPHILS # (AUTO) 5.1 X10'3 (1.8-7.7); NEUTROPHILS % (AUTO) 80.9 % (42-75); PLATELET COUNT 237 X10'3 (140-440); RED BLOOD COUNT 4.12 X10'6 (4.70-6.10); RED CELL DISTRIBUTION WIDTH 14.6 % (11.5-14.5); WHITE BLOOD COUNT 6.3 X10'3 (4.5-11.0)
[2018-07-21 14:05] LABS: PARTIAL THROMBOPLASTIN TIME 25 SECONDS (22-32)
[2018-07-21 14:09] LABS: ALANINE AMINOTRANSFERASE 42 U/L (12-78); ALBUMIN 3.7 G/DL (3.4-5.0); ALBUMIN/GLOBULIN RATIO 1.1 (1.1-1.5); ALKALINE PHOSPHATASE 60 IU/L (46-116); ANION GAP 8 (8-16); ASPARTATE AMINO TRANSFERASE 52 U/L (10-37); BILIRUBIN,TOTAL 0.4 MG/DL (0.1-1.0); BLOOD UREA NITROGEN 14 MG/DL (7-18); BUN/CREATININE RATIO 13.9 (5.4-32.0); CHLORIDE 100 MMOL/L (99-107); CREATININE 1.01 MG/DL (0.60-1.10); GLUCOSE 127 MG/DL (70-104); MAGNESIUM 1.5 MG/DL (1.5-2.4); SODIUM 137 MMOL/L (135-145); TOTAL CARBON DIOXIDE 28.7 MMOL/L (24-32); TOTAL PROTEIN 7.2 G/DL (6.4-8.2); eGFR 71 ML/MIN
[2018-07-21 14:39] LABS: CLARITY,URINE CLOUDY (Clear); COLOR,URINE YELLOW (Yellow); GLUCOSE, URINE NEGATIVE (Neg); KETONES,URINE NEGATIVE (Neg); LEUKOCYTE ESTERASE ,URINE MODERATE (Neg); NITRITES, URINE NEGATIVE (Neg); OCCULT BLOOD,URINE LARGE (Neg); PROTEIN,URINE NEGATIVE (Neg); UROBILINOGEN,URINE 0.2 E.U/dL (0.2-1.0)
[2018-07-21 14:42] LABS: UA COLLECTION TYPE FOLEY CATH
[2018-07-21 14:52] LABS: BACTERIA,URINE FEW /HPF (Neg); MUCUS STRANDS NONE SEEN /LPF (Neg); RBC,URINE TNTC /HPF (0-2); SQUAMOUS EPITHELIAL CELL,UR NONE SEEN /LPF (FEW); TRANSITIONAL EPI CELLS,URINE FEW /HPF; WBC,URINE 30-50 /HPF (0-4)
[2018-07-21 14:53] LABS: HYALINE CASTS 0-3 /LPF (NEGATIVE)
[2018-07-21 15:05] LABS: ETHANOL < 0.010 GM/DL (0.0-0.010)
[2018-07-21 16:11] LABS: URINE AMPHETAMINE SCREEN POSITIVE (Neg); URINE BARBITUATE SCREEN NEGATIVE (Neg); URINE BENZODIAZEPINES SCREEN NEGATIVE (Neg); URINE CANNABINOID SCREEN NEGATIVE (Neg); URINE COCAINE SCREEN NEGATIVE (Neg); URINE METHADONE SCREEN NEGATIVE (Neg); URINE OPIATE SCREEN NEGATIVE (Neg); URINE PHENCYCLIDINE SCREEN NEGATIVE (Neg)
[2018-07-21] MEDS ORDERED: acetaminophen 650mg rectal suppository RC PRN (17:00)
[2018-07-21] MEDS ORDERED: magnesium 4gm in 100ml NS 100 ML IV PRN (17:00)
[2018-07-21] MEDS ORDERED: potassium Cl 40MEQ/NS 500ml 500 ML IV PRN ×2 (17:00)
[2018-07-21] MEDS ORDERED: magnesium 2GM in 50ml NS 50 ML IV PRN (17:00)
[2018-07-21] MEDS ORDERED: potassium Cl 20 mEq SR tablet PO PRN (17:00)
[2018-07-21] MEDS ORDERED: ondansetron/PF 4mg/2ml inj IV PRN (17:00)
[2018-07-21] MEDS ORDERED: pantoprazole 40 MG vial IV ONE (17:05)
[2018-07-21 17:20] LABS: PHENYTOIN (DILANTIN) < 0.5 UG/ML (10.0-20.0)
[2018-07-21] MEDS ORDERED: ACET250T3 PO (17:21)
[2018-07-21] MEDS ORDERED: PANT40TA4 PO (17:21)
[2018-07-21] MEDS ORDERED: IPRA3AMP31 IH (17:21)
[2018-07-21] MEDS: normal saline 1000ml 1,000 ML IV SCH (17:29)
[2018-07-21] MEDS ORDERED: ipratropium/albuterol 3ml nebule NEB PRN (19:15)
[2018-07-21] MEDS: lactobacillus rhamnosus 10,000 MMU CELLS/CAPSULE PO SCH (20:00)
--- NOTE | 2018-07-21 20:52 | NUR ---
PAGER ID: [phone] MESSAGE: PATIENT 4007 CHLOE ADAIR: HIGH BP 188/100. ALTERED MENTAL STATUS. NEED PATEL PROTOCOL ORDER. THANK YOU. MARIANELA [phone].
[2018-07-21] MEDS ORDERED: hydrALAZINE 20mg/ml inj. IV PRN (21:00)
[2018-07-21 22:00] VITALS: BP 148/86
[2018-07-22 06:00] VITALS: BP 148/86
--- NOTE | 2018-07-22 06:34 | NUR ---
PATIENT REPORT GIVEN TO CONSTANZA SINGLETON.
--- NOTE | 2018-07-22 06:44 | NUR ---
Patient in room ORTHO 4007. I have received report from and had the opportunity to ask questions and assume patient care. MANI Snowden
[2018-07-22 07:41] LABS: BASOPHILS # (AUTO) 0.1 X10'3 (0-0.2); BASOPHILS % (AUTO) 0.9 % (0-1); EOSINOPHILS # (AUTO) 0.2 X10'3 (0-0.9); EOSINOPHILS % (AUTO) 3.1 % (0-6); HEMATOCRIT 33.8 % (42.0-52.0); HEMOGLOBIN 11.2 g/dl (14.0-17.9); LYMPHOCYTES # (AUTO) 1.3 X10'3 (1.1-4.8); LYMPHOCYTES % (AUTO) 19.5 % (21-51); MEAN CORPUSCULAR HEMOGLOBIN 29.8 PG (27.0-31.0); MEAN CORPUSCULAR HGB CONC 33.2 g/dL (33.0-36.5); MEAN CORPUSCULAR VOLUME 89.9 FL (78-98); MEAN PLATELET VOLUME 8.4 FL (7.4-10.4); MONOCYTES # (AUTO) 0.9 X10'3 (0-0.9); NEUTROPHILS % (AUTO) 62.5 % (42-75); PLATELET COUNT 191 X10'3 (140-440); RED BLOOD COUNT 3.76 X10'6 (4.70-6.10); RED CELL DISTRIBUTION WIDTH 15.3 % (11.5-14.5); WHITE BLOOD COUNT 6.4 X10'3 (4.5-11.0)
[2018-07-22] MEDS: lisinopril 2.5mg tablet PO SCH (08:00)
[2018-07-22] MEDS: K and/or MAG REPLACEMENT MC SCH (08:00)
[2018-07-22] MEDS: CefTRIAXone/D5W-Rocephin 1gm 50 ML IV SCH (08:00)
[2018-07-22 09:23] LABS: ALBUMIN 3.3 G/DL (3.4-5.0); ANION GAP 10 (8-16); BLOOD UREA NITROGEN 8 MG/DL (7-18); BUN/CREATININE RATIO 10.8 (5.4-32.0); CALCIUM 8.8 MG/DL (8.5-10.1); CHLORIDE 103 MMOL/L (99-107); CREATININE 0.74 MG/DL (0.60-1.10); GLUCOSE 78 MG/DL (70-104); MAGNESIUM 1.4 MG/DL (1.5-2.4); POTASSIUM 3.5 MMOL/L (3.5-5.1); SODIUM 140 MMOL/L (135-145); TOTAL CARBON DIOXIDE 27.1 MMOL/L (24-32); eGFR > 90 ML/MIN
[2018-07-22] MEDS: lactobacillus rhamnosus 10,000 MMU CELLS/CAPSULE PO SCH ×2 (09:50→20:11)
[2018-07-22] MEDS: magnesium Cl slow-release 64mg tablet PO PRN (15:55)
[2018-07-22 18:53] VITALS: BP 179/100
[2018-07-22] MEDS ORDERED: LORazepam 2 mg/ml vial IV PRN ×3 (20:40→22:35)
--- NOTE | 2018-07-22 21:00 | NUR ---
Pt continuously tries to get out of bed, heart rate increases into the 200s when doing so. EKG done on pt. Pt seeing things that are not present. notified, new orders written.
[2018-07-22 22:00] VITALS: BP 151/101
--- NOTE | 2018-07-22 22:14 | NUR ---
Md notified of pt's heart rate going into 200s while trying to get out of bed, new orders written. Md aware of NPO status.
[2018-07-22] MEDS ORDERED: metoprolol tartrate 25mg tablet PO ONE (22:15)
--- NOTE | 2018-07-22 22:30 | NUR ---
Pt still trying to get out bed. Sitter ordered. Hospital staffing will not allow for a sitter at this time.
--- NOTE | 2018-07-22 22:37 | NUR ---
Went and showed Dr. Pratt telemetry strips and he said pt was in SVT he said give the betablocker and increased the ativan.
--- NOTE | 2018-07-22 22:47 | NUR ---
admin ativan without scanning pharmacy editing happening at scanning time.
[2018-07-23 06:00] VITALS: BP 131/88
[2018-07-23 06:29] LABS: BASOPHILS % (AUTO) 0.6 % (0-1); EOSINOPHILS # (AUTO) 0.2 X10'3 (0-0.9); EOSINOPHILS % (AUTO) 2.9 % (0-6); HEMATOCRIT 31.5 % (42.0-52.0); HEMOGLOBIN 10.4 g/dl (14.0-17.9); LYMPHOCYTES % (AUTO) 13.8 % (21-51); MEAN CORPUSCULAR HEMOGLOBIN 29.8 PG (27.0-31.0); MEAN CORPUSCULAR HGB CONC 33.2 g/dL (33.0-36.5); MEAN PLATELET VOLUME 8.3 FL (7.4-10.4); MONOCYTES # (AUTO) 1.1 X10'3 (0-0.9); MONOCYTES % (AUTO) 15.7 % (2-12); NEUTROPHILS # (AUTO) 4.6 X10'3 (1.8-7.7); PLATELET COUNT 202 X10'3 (140-440); RED CELL DISTRIBUTION WIDTH 14.8 % (11.5-14.5); WHITE BLOOD COUNT 6.9 X10'3 (4.5-11.0)
[2018-07-23 06:38] LABS: ALBUMIN 3.2 G/DL (3.4-5.0); ANION GAP 12 (8-16); BLOOD UREA NITROGEN 9 MG/DL (7-18); BUN/CREATININE RATIO 10.6 (5.4-32.0); CALCIUM 8.5 MG/DL (8.5-10.1); CHLORIDE 102 MMOL/L (99-107); CREATININE 0.85 MG/DL (0.60-1.10); GLUCOSE 68 MG/DL (70-104); MAGNESIUM 1.4 MG/DL (1.5-2.4); POTASSIUM 3.4 MMOL/L (3.5-5.1); SODIUM 141 MMOL/L (135-145); TOTAL CARBON DIOXIDE 26.9 MMOL/L (24-32); eGFR 87 ML/MIN
[2018-07-23] MEDS: K and/or MAG REPLACEMENT MC SCH (08:00)
[2018-07-23] MEDS: potassium Cl 20 mEq SR tablet PO PRN (10:04)
[2018-07-23] MEDS: magnesium Cl slow-release 64mg tablet PO PRN (10:05)
[2018-07-23] MEDS: lactobacillus rhamnosus 10,000 MMU CELLS/CAPSULE PO SCH ×2 (10:05→20:15)
[2018-07-23] MEDS: lisinopril 2.5mg tablet PO SCH (10:05)
[2018-07-23] MEDS: CefTRIAXone/D5W-Rocephin 1gm 50 ML IV SCH (10:06)
[2018-07-23] MEDS: normal saline 1000ml 1,000 ML IV SCH (16:59)
[2018-07-23 18:00] VITALS: BP 142/97
[2018-07-23] MEDS: acetaZOLAMIDE 250mg tablet PO SCH (20:15)
[2018-07-23] MEDS: budesonide 0.5mg/2ml UD nebule IH SCH (20:32)
[2018-07-23 22:00] VITALS: BP 154/83
[2018-07-23] MEDS ORDERED: levetiracetam 250mg tablet PO ONE (22:45)
[2018-07-24 06:00] VITALS: BP 143/81
--- NOTE | 2018-07-24 06:11 | NUR ---
received report from angela starks
[2018-07-24 06:38] LABS: BASOPHILS # (AUTO) 0.1 X10'3 (0-0.2); EOSINOPHILS # (AUTO) 0.3 X10'3 (0-0.9); EOSINOPHILS % (AUTO) 4.4 % (0-6); HEMATOCRIT 32.2 % (42.0-52.0); HEMOGLOBIN 10.5 g/dl (14.0-17.9); LYMPHOCYTES # (AUTO) 1.1 X10'3 (1.1-4.8); LYMPHOCYTES % (AUTO) 17.7 % (21-51); MEAN CORPUSCULAR HEMOGLOBIN 29.6 PG (27.0-31.0); MEAN CORPUSCULAR HGB CONC 32.6 g/dL (33.0-36.5); MEAN PLATELET VOLUME 7.9 FL (7.4-10.4); MONOCYTES # (AUTO) 1.1 X10'3 (0-0.9); MONOCYTES % (AUTO) 18.3 % (2-12); NEUTROPHILS # (AUTO) 3.7 X10'3 (1.8-7.7); NEUTROPHILS % (AUTO) 58.6 % (42-75); PLATELET COUNT 177 X10'3 (140-440); RED BLOOD COUNT 3.54 X10'6 (4.70-6.10); WHITE BLOOD COUNT 6.3 X10'3 (4.5-11.0)
[2018-07-24 06:58] LABS: ALBUMIN 3.1 G/DL (3.4-5.0); ANION GAP 10 (8-16); BLOOD UREA NITROGEN 9 MG/DL (7-18); BUN/CREATININE RATIO 9.4 (5.4-32.0); CALCIUM 8.8 MG/DL (8.5-10.1); CHLORIDE 101 MMOL/L (99-107); CREATININE 0.96 MG/DL (0.60-1.10); GLUCOSE 71 MG/DL (70-104); MAGNESIUM 1.7 MG/DL (1.5-2.4); POTASSIUM 3.4 MMOL/L (3.5-5.1); SODIUM 138 MMOL/L (135-145); TOTAL CARBON DIOXIDE 26.8 MMOL/L (24-32); eGFR 76 ML/MIN
[2018-07-24] MEDS: K and/or MAG REPLACEMENT MC SCH (07:10)
[2018-07-24] MEDS: potassium Cl 20 mEq SR tablet PO PRN ×2 (07:22→13:02)
[2018-07-24] MEDS: lisinopril 2.5mg tablet PO SCH (07:22)
[2018-07-24] MEDS: pantoprazole 40mg Tablet.DR PO SCH (07:23)
[2018-07-24] MEDS: lactobacillus rhamnosus 10,000 MMU CELLS/CAPSULE PO SCH ×2 (07:24→20:21)
[2018-07-24] MEDS: acetaZOLAMIDE 250mg tablet PO SCH ×2 (07:24→20:21)
[2018-07-24] MEDS: levetiracetam 250mg tablet PO SCH ×2 (07:24→20:21)
[2018-07-24] MEDS: folic acid 1mg tablet PO SCH (07:24)
[2018-07-24] MEDS: aspirin 81mg tablet.DR PO SCH (07:31)
[2018-07-24] MEDS: CefTRIAXone/D5W-Rocephin 1gm 50 ML IV SCH (07:37)
[2018-07-24] MEDS: ipratropium/albuterol 3ml nebule IH PRN ×3 (08:31→20:26)
[2018-07-24] MEDS: budesonide 0.5mg/2ml UD nebule IH SCH ×2 (08:31→20:26)
[2018-07-24 10:00] VITALS: BP 123/59
[2018-07-24 18:00] VITALS: BP 129/68
--- NOTE | 2018-07-24 18:12 | NUR ---
GAVE REPORT TO MANI MALHOTRA
[2018-07-24] MEDS: albuterol 2.5 MG/3 ML nebule NEB PRN (22:58)
[2018-07-25 06:05] VITALS: BP 148/77
[2018-07-25 06:51] LABS: BASOPHILS % (AUTO) 0.7 % (0-1); EOSINOPHILS # (AUTO) 0.3 X10'3 (0-0.9); EOSINOPHILS % (AUTO) 5.3 % (0-6); HEMATOCRIT 30.6 % (42.0-52.0); HEMOGLOBIN 9.8 g/dl (14.0-17.9); LYMPHOCYTES % (AUTO) 18.9 % (21-51); MEAN CORPUSCULAR HEMOGLOBIN 29.6 PG (27.0-31.0); MEAN CORPUSCULAR HGB CONC 32.2 g/dL (33.0-36.5); MEAN CORPUSCULAR VOLUME 91.8 FL (78-98); MEAN PLATELET VOLUME 8.5 FL (7.4-10.4); MONOCYTES # (AUTO) 0.9 X10'3 (0-0.9); MONOCYTES % (AUTO) 15.9 % (2-12); NEUTROPHILS # (AUTO) 3.2 X10'3 (1.8-7.7); NEUTROPHILS % (AUTO) 59.2 % (42-75); PLATELET COUNT 175 X10'3 (140-440); RED BLOOD COUNT 3.33 X10'6 (4.70-6.10); RED CELL DISTRIBUTION WIDTH 15.3 % (11.5-14.5); WHITE BLOOD COUNT 5.4 X10'3 (4.5-11.0)
[2018-07-25 07:01] LABS: ALBUMIN 3.1 G/DL (3.4-5.0); ANION GAP 10 (8-16); BLOOD UREA NITROGEN 10 MG/DL (7-18); BUN/CREATININE RATIO 11.5 (5.4-32.0); CHLORIDE 104 MMOL/L (99-107); CREATININE 0.87 MG/DL (0.60-1.10); GLUCOSE 92 MG/DL (70-104); MAGNESIUM 1.7 MG/DL (1.5-2.4); POTASSIUM 3.5 MMOL/L (3.5-5.1); SODIUM 141 MMOL/L (135-145); TOTAL CARBON DIOXIDE 27.1 MMOL/L (24-32); eGFR 85 ML/MIN
[2018-07-25] MEDS: K and/or MAG REPLACEMENT MC SCH (08:00)
[2018-07-25] MEDS: lisinopril 2.5mg tablet PO SCH (08:18)
[2018-07-25] MEDS: acetaZOLAMIDE 250mg tablet PO SCH ×2 (08:18→20:20)
[2018-07-25] MEDS: CefTRIAXone/D5W-Rocephin 1gm 50 ML IV SCH (08:18)
[2018-07-25] MEDS: lactobacillus rhamnosus 10,000 MMU CELLS/CAPSULE PO SCH ×2 (08:19→20:20)
[2018-07-25] MEDS: pantoprazole 40mg Tablet.DR PO SCH (08:19)
[2018-07-25] MEDS: aspirin 81mg tablet.DR PO SCH (08:19)
[2018-07-25] MEDS: levetiracetam 250mg tablet PO SCH ×2 (08:19→20:20)
[2018-07-25] MEDS: folic acid 1mg tablet PO SCH (08:19)
[2018-07-25] MEDS: budesonide 0.5mg/2ml UD nebule IH SCH ×2 (08:34→19:51)
[2018-07-25 11:00] VITALS: BP 137/83
[2018-07-25] MEDS: normal saline 1000ml 1,000 ML IV SCH (17:30)
[2018-07-25 18:00] VITALS: BP 135/81
--- NOTE | 2018-07-25 18:17 | NUR ---
PATIENT REPORT RECEIVED FROM YOVANI SINGLETON.
[2018-07-25] MEDS: ipratropium/albuterol 3ml nebule IH PRN (19:50)
[2018-07-25 22:00] VITALS: BP 146/88
[2018-07-26 05:56] LABS: BASOPHILS # (AUTO) 0.1 X10'3 (0-0.2); BASOPHILS % (AUTO) 1.3 % (0-1); EOSINOPHILS # (AUTO) 0.4 X10'3 (0-0.9); EOSINOPHILS % (AUTO) 7.4 % (0-6); HEMATOCRIT 31.4 % (42.0-52.0); HEMOGLOBIN 10.2 g/dl (14.0-17.9); LYMPHOCYTES # (AUTO) 1.1 X10'3 (1.1-4.8); LYMPHOCYTES % (AUTO) 21.3 % (21-51); MEAN CORPUSCULAR HEMOGLOBIN 29.9 PG (27.0-31.0); MEAN CORPUSCULAR HGB CONC 32.6 g/dL (33.0-36.5); MEAN CORPUSCULAR VOLUME 91.6 FL (78-98); MEAN PLATELET VOLUME 8.3 FL (7.4-10.4); MONOCYTES # (AUTO) 0.8 X10'3 (0-0.9); MONOCYTES % (AUTO) 16.2 % (2-12); NEUTROPHILS # (AUTO) 2.7 X10'3 (1.8-7.7); NEUTROPHILS % (AUTO) 53.8 % (42-75); PLATELET COUNT 177 X10'3 (140-440); RED BLOOD COUNT 3.43 X10'6 (4.70-6.10); RED CELL DISTRIBUTION WIDTH 15.1 % (11.5-14.5)
[2018-07-26 06:00] VITALS: BP 132/68
--- NOTE | 2018-07-26 06:00 | NUR ---
Patient in room ORTHO 4007. I have received report from MARIANELA SINGLETON and had the opportunity to ask questions and assume patient care.
[2018-07-26 06:10] LABS: ANION GAP 7 (8-16); BLOOD UREA NITROGEN 8 MG/DL (7-18); CALCIUM 8.9 MG/DL (8.5-10.1); CHLORIDE 106 MMOL/L (99-107); CREATININE 0.89 MG/DL (0.60-1.10); GLUCOSE 100 MG/DL (70-104); MAGNESIUM 1.9 MG/DL (1.5-2.4); POTASSIUM 3.4 MMOL/L (3.5-5.1); SODIUM 141 MMOL/L (135-145); TOTAL CARBON DIOXIDE 28.2 MMOL/L (24-32); eGFR 82 ML/MIN
--- NOTE | 2018-07-26 06:24 | NUR ---
PATIENT REPORT GIVEN TO YURI SINGLETON.
[2018-07-26] MEDS ORDERED: potassium Cl 40MEQ/NS 500ml 500 ML IV PRN ×2 (07:00)
[2018-07-26] MEDS ORDERED: potassium Cl 20 mEq SR tablet PO PRN (07:00)
[2018-07-26] MEDS: K and/or MAG REPLACEMENT MC SCH (08:00)
[2018-07-26] MEDS: budesonide 0.5mg/2ml UD nebule IH SCH ×2 (08:21→19:17)
[2018-07-26] MEDS: ipratropium/albuterol 3ml nebule IH PRN ×2 (08:22→19:17)
[2018-07-26] MEDS: CefTRIAXone/D5W-Rocephin 1gm 50 ML IV SCH (08:24)
[2018-07-26] MEDS: folic acid 1mg tablet PO SCH (08:25)
[2018-07-26] MEDS: acetaZOLAMIDE 250mg tablet PO SCH ×2 (08:25→20:06)
[2018-07-26] MEDS: levetiracetam 250mg tablet PO SCH ×2 (08:25→20:06)
[2018-07-26] MEDS: lactobacillus rhamnosus 10,000 MMU CELLS/CAPSULE PO SCH ×2 (08:25→20:06)
[2018-07-26] MEDS: aspirin 81mg tablet.DR PO SCH (08:25)
[2018-07-26] MEDS: pantoprazole 40mg Tablet.DR PO SCH (08:26)
[2018-07-26] MEDS: potassium Cl 20 mEq SR tablet PO PRN ×3 (08:26→16:55)
[2018-07-26] MEDS: lisinopril 2.5mg tablet PO SCH (08:39)
--- NOTE | 2018-07-26 10:13 | NUR ---
Initial: Pt admit with AMS likely toxic and metabolic encephalopathy combined which is improving although pt remains significantly confused and A/O x 1 per MD notes. Pt currently on a regular diet with documented 75-100% PO intake likely meeting nutrient needs. LB 07/24. No nutrition diagnosis at this time. Will continue to follow. Recommendations: 1) Continue with regular diet 2) Monitor need for ONS 3) Monitor need for additional bowel care 4) Wt per rx Addendum: 07/26/18 at [address] Amended: Links added.
[2018-07-26 10:17] VITALS: BP 157/81
[2018-07-26 18:00] VITALS: BP 138/83
--- NOTE | 2018-07-26 18:30 | NUR ---
Problems reprioritized. Patient report given, questions answered & plan of care reviewed with VON SINGLETON.
[2018-07-26 22:00] VITALS: BP 135/69
[2018-07-27 06:00] VITALS: BP 143/81
--- NOTE | 2018-07-27 06:25 | NUR ---
Patient in room ORTHO 4024. I have received report from Justa SINGLETON and had the opportunity to ask questions and assume patient care.
--- NOTE | 2018-07-27 06:34 | NUR ---
Problems reprioritized. Patient report given, questions answered & plan of care reviewed with Lauren SINGLETON.
--- NOTE | 2018-07-27 06:35 | NUR ---
COLONOSCOPY PREP GIVEN TO PATIENT AT 194 LAST NIGHT AND HAD DRANK ALL OF IT BY 2099. AT THIS TIME, LIQUID STOOL IS NOT CLEAR AND STILL HAS FLECKS OF STOOL IN IT. REPORTED THIS TO EARLY SHIFT RN AND WILL RELAY THIS TO GI LAB.
[2018-07-27 06:44] LABS: MAGNESIUM 1.9 MG/DL (1.5-2.4)
[2018-07-27] MEDS: lisinopril 2.5mg tablet PO SCH (08:00)
[2018-07-27] MEDS: levetiracetam 250mg tablet PO SCH ×2 (08:00→19:28)
[2018-07-27] MEDS: pantoprazole 40mg Tablet.DR PO SCH (08:00)
[2018-07-27] MEDS: folic acid 1mg tablet PO SCH (08:00)
[2018-07-27] MEDS: lactobacillus rhamnosus 10,000 MMU CELLS/CAPSULE PO SCH ×2 (08:00→19:28)
[2018-07-27] MEDS: aspirin 81mg tablet.DR PO SCH (08:00)
[2018-07-27] MEDS: K and/or MAG REPLACEMENT MC SCH (08:00)
[2018-07-27] MEDS: acetaZOLAMIDE 250mg tablet PO SCH ×2 (08:00→19:28)
[2018-07-27] MEDS: CefTRIAXone/D5W-Rocephin 1gm 50 ML IV SCH (08:01)
[2018-07-27] MEDS: ipratropium/albuterol 3ml nebule IH PRN ×2 (08:50→19:43)
[2018-07-27] MEDS: budesonide 0.5mg/2ml UD nebule IH SCH ×2 (08:50→19:44)
[2018-07-27 09:48] LABS: POTASSIUM 3.7 MMOL/L (3.5-5.1)
[2018-07-27] MEDS: normal saline 1000ml 1,000 ML IV SCH (16:59)
[2018-07-27 18:00] VITALS: BP 147/79
--- NOTE | 2018-07-27 18:21 | NUR ---
Problems reprioritized. Patient report given, questions answered & plan of care reviewed with Justa SINGLETON.
--- NOTE | 2018-07-27 18:41 | NUR ---
Patient in room ORTHO 4024. I have received report from Sharona SINGLETON and had the opportunity to ask questions and assume patient care.
[2018-07-27 22:00] VITALS: BP 140/80
[2018-07-28 06:00] VITALS: BP 155/84
--- NOTE | 2018-07-28 06:07 | NUR ---
Problems reprioritized. Patient report given, questions answered & plan of care reviewed with BRAYAN SINGLETON.
--- NOTE | 2018-07-28 06:20 | NUR ---
received report from angela moore
[2018-07-28] MEDS: K and/or MAG REPLACEMENT MC SCH (07:07)
[2018-07-28] MEDS: CefTRIAXone/D5W-Rocephin 1gm 50 ML IV SCH (07:25)
[2018-07-28] MEDS: pantoprazole 40mg Tablet.DR PO SCH (07:27)
[2018-07-28] MEDS: folic acid 1mg tablet PO SCH (07:27)
[2018-07-28] MEDS: acetaZOLAMIDE 250mg tablet PO SCH ×2 (07:27→20:30)
[2018-07-28] MEDS: lisinopril 2.5mg tablet PO SCH (07:27)
[2018-07-28] MEDS: aspirin 81mg tablet.DR PO SCH (07:28)
[2018-07-28] MEDS: lactobacillus rhamnosus 10,000 MMU CELLS/CAPSULE PO SCH ×2 (07:28→20:30)
[2018-07-28] MEDS: levetiracetam 250mg tablet PO SCH ×2 (07:28→20:30)
[2018-07-28] MEDS: normal saline 1000ml 1,000 ML IV SCH (07:30)
[2018-07-28] MEDS: ipratropium/albuterol 3ml nebule IH PRN ×2 (08:03→20:51)
[2018-07-28] MEDS: budesonide 0.5mg/2ml UD nebule IH SCH ×2 (08:03→20:51)
[2018-07-28 10:00] VITALS: BP 136/75
[2018-07-28 18:00] VITALS: BP 147/72
--- NOTE | 2018-07-28 18:17 | NUR ---
GAVE REPORT TO MANI IBRAHIM
[2018-07-28 22:00] VITALS: BP 142/88
[2018-07-29 05:26] LABS: BASOPHILS # (AUTO) 0.2 X10'3 (0-0.2); BASOPHILS % (AUTO) 4.2 % (0-1); EOSINOPHILS # (AUTO) 0.3 X10'3 (0-0.9); EOSINOPHILS % (AUTO) 5.9 % (0-6); HEMATOCRIT 32.4 % (42.0-52.0); HEMOGLOBIN 10.5 g/dl (14.0-17.9); LYMPHOCYTES # (AUTO) 1.3 X10'3 (1.1-4.8); LYMPHOCYTES % (AUTO) 27.6 % (21-51); MEAN CORPUSCULAR HEMOGLOBIN 29.7 PG (27.0-31.0); MEAN CORPUSCULAR HGB CONC 32.5 g/dL (33.0-36.5); MEAN CORPUSCULAR VOLUME 91.4 FL (78-98); MEAN PLATELET VOLUME 8.9 FL (7.4-10.4); MONOCYTES # (AUTO) 0.4 X10'3 (0-0.9); MONOCYTES % (AUTO) 9.8 % (2-12); NEUTROPHILS # (AUTO) 2.4 X10'3 (1.8-7.7); NEUTROPHILS % (AUTO) 52.5 % (42-75); PLATELET COUNT 217 X10'3 (140-440); RED BLOOD COUNT 3.54 X10'6 (4.70-6.10); WHITE BLOOD COUNT 4.6 X10'3 (4.5-11.0)
[2018-07-29 05:44] LABS: ALANINE AMINOTRANSFERASE 16 U/L (12-78); ALBUMIN 3.2 G/DL (3.4-5.0); ALKALINE PHOSPHATASE 39 IU/L (46-116); ANION GAP 10 (8-16); ASPARTATE AMINO TRANSFERASE 12 U/L (10-37); BILIRUBIN,TOTAL 0.2 MG/DL (0.1-1.0); BLOOD UREA NITROGEN 15 MG/DL (7-18); BUN/CREATININE RATIO 17.6 (5.4-32.0); CALCIUM 8.8 MG/DL (8.5-10.1); CHLORIDE 109 MMOL/L (99-107); CHOL/HDL RATIO 2.3 (0.00-4.99); CHOLESTEROL 164 MG/DL (0-200); CREATININE 0.85 MG/DL (0.60-1.10); GLUCOSE 91 MG/DL (70-104); HDL CHOLESTEROL 71 MG/DL (35-60); LDL CHOLESTEROL 76 MG/DL (50-100); MAGNESIUM 1.8 MG/DL (1.5-2.4); POTASSIUM 3.4 MMOL/L (3.5-5.1); SODIUM 141 MMOL/L (135-145); TOTAL CARBON DIOXIDE 22.2 MMOL/L (24-32); TOTAL PROTEIN 6.5 G/DL (6.4-8.2); TRIGLYCERIDES 68 MG/DL (20-135); eGFR 87 ML/MIN
--- NOTE | 2018-07-29 06:45 | NUR ---
RECEIVED REPORT FROM PATRICE SINGLETON
[2018-07-29 06:59] VITALS: BP 160/99
[2018-07-29] MEDS: K and/or MAG REPLACEMENT MC SCH (08:00)
[2018-07-29] MEDS: budesonide 0.5mg/2ml UD nebule IH SCH ×2 (08:44→20:24)
[2018-07-29] MEDS: pantoprazole 40mg Tablet.DR PO SCH (08:48)
[2018-07-29] MEDS: lisinopril 2.5mg tablet PO SCH (08:49)
[2018-07-29] MEDS: folic acid 1mg tablet PO SCH (08:50)
[2018-07-29] MEDS: aspirin 81mg tablet.DR PO SCH (08:50)
[2018-07-29] MEDS: lactobacillus rhamnosus 10,000 MMU CELLS/CAPSULE PO SCH ×2 (08:50→19:46)
[2018-07-29] MEDS: acetaZOLAMIDE 250mg tablet PO SCH ×2 (08:50→19:46)
[2018-07-29] MEDS: levetiracetam 250mg tablet PO SCH ×2 (08:50→19:46)
[2018-07-29 10:00] VITALS: BP 142/78
[2018-07-29] MEDS: normal saline 1000ml 1,000 ML IV SCH (16:59)
[2018-07-29 18:00] VITALS: BP 149/80
[2018-07-29] MEDS: ipratropium/albuterol 3ml nebule IH PRN (20:24)
[2018-07-29 22:00] VITALS: BP 145/79
[2018-07-30 05:59] LABS: BASOPHILS # (AUTO) 0.1 X10'3 (0-0.2); BASOPHILS % (AUTO) 1.2 % (0-1); EOSINOPHILS # (AUTO) 0.3 X10'3 (0-0.9); EOSINOPHILS % (AUTO) 6.7 % (0-6); HEMATOCRIT 32.5 % (42.0-52.0); HEMOGLOBIN 10.7 g/dl (14.0-17.9); LYMPHOCYTES # (AUTO) 1.3 X10'3 (1.1-4.8); LYMPHOCYTES % (AUTO) 29.6 % (21-51); MEAN CORPUSCULAR HEMOGLOBIN 29.5 PG (27.0-31.0); MEAN CORPUSCULAR HGB CONC 32.8 g/dL (33.0-36.5); MEAN CORPUSCULAR VOLUME 90.1 FL (78-98); MEAN PLATELET VOLUME 8.6 FL (7.4-10.4); MONOCYTES # (AUTO) 0.8 X10'3 (0-0.9); MONOCYTES % (AUTO) 17.7 % (2-12); NEUTROPHILS % (AUTO) 44.8 % (42-75); PLATELET COUNT 237 X10'3 (140-440); RED BLOOD COUNT 3.61 X10'6 (4.70-6.10); RED CELL DISTRIBUTION WIDTH 14.9 % (11.5-14.5); WHITE BLOOD COUNT 4.4 X10'3 (4.5-11.0)
[2018-07-30 06:13] LABS: ALANINE AMINOTRANSFERASE 17 U/L (12-78); ALBUMIN 3.3 G/DL (3.4-5.0); ALKALINE PHOSPHATASE 40 IU/L (46-116); ANION GAP 9 (8-16); ASPARTATE AMINO TRANSFERASE 10 U/L (10-37); BILIRUBIN,TOTAL 0.2 MG/DL (0.1-1.0); BLOOD UREA NITROGEN 17 MG/DL (7-18); BUN/CREATININE RATIO 16.7 (5.4-32.0); CALCIUM 9.1 MG/DL (8.5-10.1); CHLORIDE 109 MMOL/L (99-107); CREATININE 1.02 MG/DL (0.60-1.10); GLUCOSE 86 MG/DL (70-104); MAGNESIUM 1.9 MG/DL (1.5-2.4); POTASSIUM 3.6 MMOL/L (3.5-5.1); SODIUM 141 MMOL/L (135-145); TOTAL CARBON DIOXIDE 23.1 MMOL/L (24-32); TOTAL PROTEIN 6.6 G/DL (6.4-8.2); eGFR 70 ML/MIN
--- NOTE | 2018-07-30 06:27 | NUR ---
received report from Margret SINGLETON
[2018-07-30 07:03] VITALS: BP 135/56
[2018-07-30] MEDS: K and/or MAG REPLACEMENT MC SCH (08:00)
[2018-07-30] MEDS: acetaZOLAMIDE 250mg tablet PO SCH ×2 (08:12→19:39)
[2018-07-30] MEDS: pantoprazole 40mg Tablet.DR PO SCH (08:12)
[2018-07-30] MEDS: levetiracetam 250mg tablet PO SCH ×2 (08:12→19:39)
[2018-07-30] MEDS: folic acid 1mg tablet PO SCH (08:12)
[2018-07-30] MEDS: lactobacillus rhamnosus 10,000 MMU CELLS/CAPSULE PO SCH ×2 (08:12→19:39)
[2018-07-30] MEDS: lisinopril 2.5mg tablet PO SCH (08:14)
[2018-07-30] MEDS: aspirin 81mg tablet.DR PO SCH (08:15)
[2018-07-30] MEDS: budesonide 0.5mg/2ml UD nebule IH SCH ×2 (09:02→20:41)
[2018-07-30] MEDS: ipratropium/albuterol 3ml nebule IH PRN ×2 (09:03→20:41)
[2018-07-30 10:00] VITALS: BP 122/71
[2018-07-30 18:00] VITALS: BP 145/79
[2018-07-30] MEDS ORDERED: potassium Cl 40MEQ/NS 500ml 500 ML IV PRN ×2 (18:10)
[2018-07-30] MEDS ORDERED: potassium Cl 20 mEq SR tablet PO PRN ×2 (18:10)
[2018-07-30] MEDS ORDERED: magnesium Cl slow-release 64mg tablet PO PRN (18:10)
[2018-07-30] MEDS ORDERED: magnesium hydroxide 30ml (MOM) UD suspension PO ONE (18:10)
[2018-07-30 22:00] VITALS: BP 152/84
[2018-07-31 06:00] VITALS: BP 143/78
--- NOTE | 2018-07-31 06:22 | NUR ---
Problems reprioritized. Patient report given, questions answered & plan of care reviewed with MANI ACEVEDO.
--- NOTE | 2018-07-31 06:25 | NUR ---
Patient in room ORTHO 4024. I have received report from Margret SINGLETON and had the opportunity to ask questions and assume patient care.
[2018-07-31 07:16] LABS: EOSINOPHILS # (AUTO) 0.3 X10'3 (0-0.9); EOSINOPHILS % (AUTO) 7.2 % (0-6); HEMATOCRIT 32.8 % (42.0-52.0); HEMOGLOBIN 10.7 g/dl (14.0-17.9); LYMPHOCYTES # (AUTO) 1.4 X10'3 (1.1-4.8); LYMPHOCYTES % (AUTO) 33.6 % (21-51); MEAN CORPUSCULAR HEMOGLOBIN 29.4 PG (27.0-31.0); MEAN CORPUSCULAR HGB CONC 32.7 g/dL (33.0-36.5); MEAN PLATELET VOLUME 8.5 FL (7.4-10.4); MONOCYTES # (AUTO) 0.7 X10'3 (0-0.9); MONOCYTES % (AUTO) 16.9 % (2-12); NEUTROPHILS # (AUTO) 1.7 X10'3 (1.8-7.7); NEUTROPHILS % (AUTO) 41.3 % (42-75); PLATELET COUNT 254 X10'3 (140-440); RED BLOOD COUNT 3.64 X10'6 (4.70-6.10); RED CELL DISTRIBUTION WIDTH 15.1 % (11.5-14.5); WHITE BLOOD COUNT 4.2 X10'3 (4.5-11.0)
[2018-07-31] MEDS: aspirin 81mg tablet.DR PO SCH (07:26)
[2018-07-31] MEDS: pantoprazole 40mg Tablet.DR PO SCH (07:26)
[2018-07-31] MEDS: levetiracetam 250mg tablet PO SCH ×2 (07:26→20:14)
[2018-07-31] MEDS: lactobacillus rhamnosus 10,000 MMU CELLS/CAPSULE PO SCH ×2 (07:26→20:14)
[2018-07-31] MEDS: acetaZOLAMIDE 250mg tablet PO SCH ×2 (07:26→20:14)
[2018-07-31] MEDS: folic acid 1mg tablet PO SCH (07:26)
[2018-07-31] MEDS: lisinopril 2.5mg tablet PO SCH (07:29)
[2018-07-31 07:32] LABS: ALANINE AMINOTRANSFERASE 18 U/L (12-78); ALBUMIN 3.3 G/DL (3.4-5.0); ALKALINE PHOSPHATASE 43 IU/L (46-116); ANION GAP 8 (8-16); ASPARTATE AMINO TRANSFERASE 18 U/L (10-37); BILIRUBIN,TOTAL 0.2 MG/DL (0.1-1.0); BLOOD UREA NITROGEN 21 MG/DL (7-18); BUN/CREATININE RATIO 22.3 (5.4-32.0); CHLORIDE 109 MMOL/L (99-107); CREATININE 0.94 MG/DL (0.60-1.10); GLUCOSE 91 MG/DL (70-104); MAGNESIUM 2.2 MG/DL (1.5-2.4); SODIUM 142 MMOL/L (135-145); TOTAL CARBON DIOXIDE 24.8 MMOL/L (24-32); TOTAL PROTEIN 6.7 G/DL (6.4-8.2); eGFR 77 ML/MIN
[2018-07-31 07:33] LABS: POTASSIUM 3.9 MMOL/L (3.5-5.1)
[2018-07-31] MEDS: K and/or MAG REPLACEMENT MC SCH (08:00)
[2018-07-31] MEDS: budesonide 0.5mg/2ml UD nebule IH SCH ×2 (08:47→20:00)
[2018-07-31] MEDS: ipratropium/albuterol 3ml nebule IH PRN (08:49)
[2018-07-31 10:00] VITALS: BP 142/58
--- NOTE | 2018-07-31 11:24 | NUR ---
Student documentation: I have reviewed all interventions, assessments performed and documented by Maria A Chowdhury. Student Medication Administration: For this medication-pass time frame, all medication were reviewed, dispensed, administered and documented per hospital policy by Maria A Chowdhury.
--- NOTE | 2018-07-31 15:07 | NUR ---
Reassessment: Toxic and metabolic encephalopathy improving however pt remains significantly confused per MD notes. Pt has completed 7 day course of abx for tx of UTI with E.coli. Pt continues on regular diet with documented 75-100% PO intake meeting nutrient needs. LBM 07/24, pt given one dose of MoM 07/30; per RN pt with a BM today however not documented yet in EMR. Will continue to follow. Recommendations: 1) Continue with regular diet 2) Monitor need for ONS 3) Monitor need for additional bowel care 4) Wt per rx Addendum: 07/31/18 at [address] Amended: Links added.
[2018-07-31] MEDS ORDERED: HYDROcodone/acetaminophen 10/325mg tab PO PRN (17:15)
[2018-07-31] MEDS: HYDROcodone/acetaminophen 5mg/325mg tablet PO PRN (17:44)
[2018-07-31 18:00] VITALS: BP 137/72
--- NOTE | 2018-07-31 18:31 | NUR ---
Problems reprioritized. Patient report given, questions answered & plan of care reviewed with Vicky SINGLETON.
[2018-07-31 22:00] VITALS: BP 142/67
[2018-08-01 06:30] VITALS: BP 131/73
--- NOTE | 2018-08-01 06:30 | NUR ---
Patient in room ORTHO 4024. I have received report from Vicky SINGLETON and had the opportunity to ask questions and assume patient care.
[2018-08-01 06:38] LABS: BASOPHILS # (AUTO) 0.1 X10'3 (0-0.2); BASOPHILS % (AUTO) 1.3 % (0-1); EOSINOPHILS # (AUTO) 0.3 X10'3 (0-0.9); EOSINOPHILS % (AUTO) 6.3 % (0-6); HEMATOCRIT 31.6 % (42.0-52.0); HEMOGLOBIN 10.5 g/dl (14.0-17.9); LYMPHOCYTES # (AUTO) 1.5 X10'3 (1.1-4.8); LYMPHOCYTES % (AUTO) 31.5 % (21-51); MEAN CORPUSCULAR HEMOGLOBIN 29.9 PG (27.0-31.0); MEAN CORPUSCULAR HGB CONC 33.1 g/dL (33.0-36.5); MEAN CORPUSCULAR VOLUME 90.4 FL (78-98); MEAN PLATELET VOLUME 9.1 FL (7.4-10.4); MONOCYTES # (AUTO) 0.7 X10'3 (0-0.9); MONOCYTES % (AUTO) 16.1 % (2-12); NEUTROPHILS # (AUTO) 2.1 X10'3 (1.8-7.7); NEUTROPHILS % (AUTO) 44.8 % (42-75); PLATELET COUNT 255 X10'3 (140-440); RED CELL DISTRIBUTION WIDTH 14.6 % (11.5-14.5); WHITE BLOOD COUNT 4.6 X10'3 (4.5-11.0)
[2018-08-01 06:59] LABS: ALANINE AMINOTRANSFERASE 18 U/L (12-78); ALBUMIN 3.2 G/DL (3.4-5.0); ALKALINE PHOSPHATASE 45 IU/L (46-116); ANION GAP 11 (8-16); ASPARTATE AMINO TRANSFERASE 19 U/L (10-37); BILIRUBIN,TOTAL 0.2 MG/DL (0.1-1.0); BLOOD UREA NITROGEN 20 MG/DL (7-18); BUN/CREATININE RATIO 21.3 (5.4-32.0); CALCIUM 8.7 MG/DL (8.5-10.1); CHLORIDE 109 MMOL/L (99-107); CREATININE 0.94 MG/DL (0.60-1.10); GLUCOSE 89 MG/DL (70-104); POTASSIUM 3.7 MMOL/L (3.5-5.1); SODIUM 142 MMOL/L (135-145); TOTAL CARBON DIOXIDE 21.8 MMOL/L (24-32); TOTAL PROTEIN 6.4 G/DL (6.4-8.2); eGFR 77 ML/MIN
[2018-08-01] MEDS: budesonide 0.5mg/2ml UD nebule IH SCH ×2 (07:37→20:00)
[2018-08-01] MEDS: ipratropium/albuterol 3ml nebule IH PRN (07:37)
[2018-08-01] MEDS: K and/or MAG REPLACEMENT MC SCH (08:00)
[2018-08-01] MEDS: lactobacillus rhamnosus 10,000 MMU CELLS/CAPSULE PO SCH ×2 (08:23→20:45)
[2018-08-01] MEDS: lisinopril 2.5mg tablet PO SCH (08:23)
[2018-08-01] MEDS: folic acid 1mg tablet PO SCH (08:23)
[2018-08-01] MEDS: aspirin 81mg tablet.DR PO SCH (08:23)
[2018-08-01] MEDS: acetaZOLAMIDE 250mg tablet PO SCH ×2 (08:23→20:45)
[2018-08-01] MEDS: levetiracetam 250mg tablet PO SCH ×2 (08:23→20:45)
[2018-08-01] MEDS: pantoprazole 40mg Tablet.DR PO SCH (08:23)
[2018-08-01] MEDS: HYDROcodone/acetaminophen 5mg/325mg tablet PO PRN (08:36)
[2018-08-01 10:00] VITALS: BP 132/71
[2018-08-01 18:00] VITALS: BP 120/73
--- NOTE | 2018-08-01 18:32 | NUR ---
patient report given to Sy SINGLETON
--- NOTE | 2018-08-01 19:00 | NUR ---
Patient in room ORTHO 4024. I have received report from Racquel SINGLETON and had the opportunity to ask questions and assume patient care.
[2018-08-01 22:00] VITALS: BP 131/77
--- NOTE | 2018-08-02 06:24 | NUR ---
I have received patient report from Sy SINGLETON
[2018-08-02 06:32] VITALS: BP 115/58
[2018-08-02 06:55] LABS: BASOPHILS % (AUTO) 0.8 % (0-1); EOSINOPHILS # (AUTO) 0.3 X10'3 (0-0.9); EOSINOPHILS % (AUTO) 4.3 % (0-6); HEMATOCRIT 31.6 % (42.0-52.0); HEMOGLOBIN 10.4 g/dl (14.0-17.9); LYMPHOCYTES # (AUTO) 1.4 X10'3 (1.1-4.8); LYMPHOCYTES % (AUTO) 23.3 % (21-51); MEAN CORPUSCULAR HEMOGLOBIN 29.9 PG (27.0-31.0); MEAN CORPUSCULAR VOLUME 90.5 FL (78-98); MEAN PLATELET VOLUME 8.8 FL (7.4-10.4); MONOCYTES # (AUTO) 0.9 X10'3 (0-0.9); NEUTROPHILS # (AUTO) 3.4 X10'3 (1.8-7.7); NEUTROPHILS % (AUTO) 56.6 % (42-75); PLATELET COUNT 261 X10'3 (140-440); RED BLOOD COUNT 3.49 X10'6 (4.70-6.10); WHITE BLOOD COUNT 6.1 X10'3 (4.5-11.0)
[2018-08-02 07:22] LABS: ALANINE AMINOTRANSFERASE 16 U/L (12-78); ALBUMIN 3.2 G/DL (3.4-5.0); ALKALINE PHOSPHATASE 43 IU/L (46-116); ANION GAP 11 (8-16); ASPARTATE AMINO TRANSFERASE 11 U/L (10-37); BILIRUBIN,TOTAL 0.2 MG/DL (0.1-1.0); BLOOD UREA NITROGEN 25 MG/DL (7-18); BUN/CREATININE RATIO 27.2 (5.4-32.0); CALCIUM 9.2 MG/DL (8.5-10.1); CHLORIDE 109 MMOL/L (99-107); CREATININE 0.92 MG/DL (0.60-1.10); GLUCOSE 90 MG/DL (70-104); MAGNESIUM 1.9 MG/DL (1.5-2.4); POTASSIUM 3.7 MMOL/L (3.5-5.1); SODIUM 143 MMOL/L (135-145); TOTAL CARBON DIOXIDE 23.1 MMOL/L (24-32); TOTAL PROTEIN 6.5 G/DL (6.4-8.2); eGFR 79 ML/MIN
[2018-08-02] MEDS: K and/or MAG REPLACEMENT MC SCH (08:00)
[2018-08-02] MEDS: levetiracetam 250mg tablet PO SCH ×2 (08:26→20:11)
[2018-08-02] MEDS: lactobacillus rhamnosus 10,000 MMU CELLS/CAPSULE PO SCH ×2 (08:26→20:11)
[2018-08-02] MEDS: lisinopril 2.5mg tablet PO SCH (08:26)
[2018-08-02] MEDS: pantoprazole 40mg Tablet.DR PO SCH (08:26)
[2018-08-02] MEDS: acetaZOLAMIDE 250mg tablet PO SCH ×2 (08:26→20:11)
[2018-08-02] MEDS: folic acid 1mg tablet PO SCH (08:26)
[2018-08-02] MEDS: aspirin 81mg tablet.DR PO SCH (08:27)
[2018-08-02 10:00] VITALS: BP 136/63
[2018-08-02] MEDS: budesonide 0.5mg/2ml UD nebule IH SCH ×2 (10:04→20:09)
[2018-08-02] MEDS: ipratropium/albuterol 3ml nebule IH PRN ×2 (10:05→20:09)
[2018-08-02 18:00] VITALS: BP 136/63
--- NOTE | 2018-08-02 18:11 | NUR ---
Patient report given to Sy SINGLETON
--- NOTE | 2018-08-02 19:00 | NUR ---
Patient in room ORTHO 4020. I have received report from Racquel SINGLETON and had the opportunity to ask questions and assume patient care.
[2018-08-02 19:29] LABS: URINE AMPHETAMINE SCREEN NEGATIVE (Neg); URINE BARBITUATE SCREEN NEGATIVE (Neg); URINE BENZODIAZEPINES SCREEN NEGATIVE (Neg); URINE CANNABINOID SCREEN NEGATIVE (Neg); URINE COCAINE SCREEN NEGATIVE (Neg); URINE METHADONE SCREEN NEGATIVE (Neg); URINE OPIATE SCREEN POSITIVE (Neg); URINE PHENCYCLIDINE SCREEN NEGATIVE (Neg)
[2018-08-02 22:00] VITALS: BP 118/59
--- NOTE | 2018-08-03 06:28 | NUR ---
I have received patient report from Sy SINGLETON
[2018-08-03 06:30] VITALS: BP 122/89
[2018-08-03] MEDS: K and/or MAG REPLACEMENT MC SCH (08:00)
[2018-08-03] MEDS: acetaZOLAMIDE 250mg tablet PO SCH ×2 (08:10→20:12)
[2018-08-03] MEDS: aspirin 81mg tablet.DR PO SCH (08:10)
[2018-08-03] MEDS: lactobacillus rhamnosus 10,000 MMU CELLS/CAPSULE PO SCH ×2 (08:11→20:12)
[2018-08-03] MEDS: levetiracetam 250mg tablet PO SCH ×2 (08:11→20:12)
[2018-08-03] MEDS: folic acid 1mg tablet PO SCH (08:11)
[2018-08-03] MEDS: pantoprazole 40mg Tablet.DR PO SCH (08:11)
[2018-08-03] MEDS: lisinopril 2.5mg tablet PO SCH (08:11)
[2018-08-03] MEDS: budesonide 0.5mg/2ml UD nebule IH SCH ×2 (08:28→20:00)
[2018-08-03] MEDS: ipratropium/albuterol 3ml nebule IH PRN (08:28)
[2018-08-03 10:00] VITALS: BP 125/62
[2018-08-03] MEDS: heparin, porcine 5000 units/ml vial SQ SCH ×2 (14:05→21:55)
[2018-08-03] MEDS: HYDROcodone/acetaminophen 5mg/325mg tablet PO PRN (14:09)
--- NOTE | 2018-08-03 15:22 | NUR ---
PAGER ID: [phone] MESSAGE: Dr. Dowd can we order nicotine patch for Oscar Butler. Lucia [phone]. nephew said he smokes 1 and 1/2 packs a day.
[2018-08-03 18:00] VITALS: BP 101/77
--- NOTE | 2018-08-03 18:22 | NUR ---
Patient report given to Agueda SINGLETON
--- NOTE | 2018-08-03 18:23 | NUR ---
Patient in room ORTHO 4020. I have received report from Lucia SINGLETON and had the opportunity to ask questions and assume patient care.
[2018-08-03 22:00] VITALS: BP 110/60
[2018-08-04 06:00] VITALS: BP 126/53
--- NOTE | 2018-08-04 06:24 | NUR ---
Problems reprioritized. Patient report given, questions answered & plan of care reviewed with Marija SINGLETON.
[2018-08-04] MEDS: pantoprazole 40mg Tablet.DR PO SCH (07:49)
[2018-08-04] MEDS: acetaZOLAMIDE 250mg tablet PO SCH ×2 (07:49→20:07)
[2018-08-04] MEDS: levetiracetam 250mg tablet PO SCH ×2 (07:49→20:07)
[2018-08-04] MEDS: lactobacillus rhamnosus 10,000 MMU CELLS/CAPSULE PO SCH ×2 (07:49→20:07)
[2018-08-04] MEDS: folic acid 1mg tablet PO SCH (07:49)
[2018-08-04] MEDS: aspirin 81mg tablet.DR PO SCH (07:50)
[2018-08-04] MEDS: heparin, porcine 5000 units/ml vial SQ SCH ×2 (07:53→20:07)
[2018-08-04] MEDS: lisinopril 2.5mg tablet PO SCH (07:53)
[2018-08-04] MEDS: K and/or MAG REPLACEMENT MC SCH (08:00)
[2018-08-04] MEDS: budesonide 0.5mg/2ml UD nebule IH SCH ×2 (08:00→19:27)
--- NOTE | 2018-08-04 10:00 | NUR ---
Patient has been pleasant, sitting in chair staring out the window.
[2018-08-04 10:18] VITALS: BP 121/65
--- NOTE | 2018-08-04 12:21 | NUR ---
Patient has been pleasant, sitting in chair staring out the window. Uses call light and urinal appropriately.
--- NOTE | 2018-08-04 16:50 | NUR ---
Page sent to Dr. Brown MESSAGE: [phone] Dmitri Sifuentes Do you want to give the patient Lasix for his edematous arms? and less fluid, NS at 40 currently. Marija [phone]
--- NOTE | 2018-08-04 16:54 | NUR ---
0800 SVN TREATMENT TRIAGED
[2018-08-04 18:00] VITALS: BP 128/70
--- NOTE | 2018-08-04 18:21 | NUR ---
Report to MANI Marr
--- NOTE | 2018-08-04 18:30 | NUR ---
Patient in room ORTHO 4020. I have received report from PARK SINGLETON and had the opportunity to ask questions and assume patient care.
[2018-08-04] MEDS: ipratropium/albuterol 3ml nebule IH PRN (19:27)
[2018-08-04 22:00] VITALS: BP 139/81
[2018-08-05 06:00] VITALS: BP 137/77
--- NOTE | 2018-08-05 06:14 | NUR ---
REPORT TO PARK SINGLETON
[2018-08-05] MEDS: lisinopril 2.5mg tablet PO SCH (07:48)
[2018-08-05] MEDS: pantoprazole 40mg Tablet.DR PO SCH (07:48)
[2018-08-05] MEDS: levetiracetam 250mg tablet PO SCH ×2 (07:48→21:12)
[2018-08-05] MEDS: aspirin 81mg tablet.DR PO SCH (07:48)
[2018-08-05] MEDS: folic acid 1mg tablet PO SCH (07:48)
[2018-08-05] MEDS: lactobacillus rhamnosus 10,000 MMU CELLS/CAPSULE PO SCH ×2 (07:49→21:12)
[2018-08-05] MEDS: acetaZOLAMIDE 250mg tablet PO SCH ×2 (07:49→21:12)
[2018-08-05] MEDS: heparin, porcine 5000 units/ml vial SQ SCH ×2 (07:50→21:12)
[2018-08-05] MEDS: budesonide 0.5mg/2ml UD nebule IH SCH ×2 (08:37→20:07)
[2018-08-05] MEDS: K and/or MAG REPLACEMENT MC SCH (08:58)
--- NOTE | 2018-08-05 12:22 | NUR ---
Patient has been pleasant, sitting in chair staring out the window. Uses call light and urinal appropriately.
--- NOTE | 2018-08-05 14:00 | NUR ---
Patient has been pleasant, sitting in chair staring out the window.
[2018-08-05 18:00] VITALS: BP 116/67
--- NOTE | 2018-08-05 18:18 | NUR ---
Report to Isi RN
--- NOTE | 2018-08-05 18:56 | NUR ---
PT REPORT RECEIVED FROM PARK SINGLETON.
[2018-08-05 22:00] VITALS: BP 124/51
[2018-08-06 06:00] VITALS: BP 132/66
--- NOTE | 2018-08-06 06:26 | NUR ---
PT REPORT GIVEN TO ROXY SINGLETON.
[2018-08-06] MEDS: folic acid 1mg tablet PO SCH (08:17)
[2018-08-06] MEDS: aspirin 81mg tablet.DR PO SCH (08:17)
[2018-08-06] MEDS: pantoprazole 40mg Tablet.DR PO SCH (08:17)
[2018-08-06] MEDS: lactobacillus rhamnosus 10,000 MMU CELLS/CAPSULE PO SCH ×2 (08:17→19:06)
[2018-08-06] MEDS: heparin, porcine 5000 units/ml vial SQ SCH ×2 (08:18→19:06)
[2018-08-06] MEDS: levetiracetam 250mg tablet PO SCH ×2 (08:18→19:06)
[2018-08-06] MEDS: acetaZOLAMIDE 250mg tablet PO SCH ×2 (08:18→19:06)
[2018-08-06] MEDS: lisinopril 2.5mg tablet PO SCH (08:18)
[2018-08-06] MEDS: budesonide 0.5mg/2ml UD nebule IH SCH ×2 (09:57→21:55)
[2018-08-06] MEDS: K and/or MAG REPLACEMENT MC SCH (10:37)
[2018-08-06 11:07] VITALS: BP 132/66
--- NOTE | 2018-08-06 13:38 | NUR ---
Reassessment: Pt PO 75-100% meals meeting needs. LBM 08/04. Encephalopathy continues to improve per MD note. No nutrition concerns at this time. Recommendations: 1) Continue with regular diet 2) Wt per rx Addendum: 08/06/18 at [address] Amended: Links added.
[2018-08-06 18:00] VITALS: BP 146/74
[2018-08-06 22:00] VITALS: BP 159/72
--- NOTE | 2018-08-07 06:19 | NUR ---
Problems reprioritized. Patient report given, questions answered & plan of care reviewed with MANI Gilbert.
--- NOTE | 2018-08-07 06:37 | NUR ---
Patient in room ORTHO 4020. I have received report from MANI EVANS and had the opportunity to ask questions and assume patient care.
[2018-08-07 07:05] VITALS: BP 131/71
[2018-08-07] MEDS: K and/or MAG REPLACEMENT MC SCH (07:32)
[2018-08-07] MEDS: folic acid 1mg tablet PO SCH (07:36)
[2018-08-07] MEDS: lisinopril 2.5mg tablet PO SCH (07:36)
[2018-08-07] MEDS: aspirin 81mg tablet.DR PO SCH (07:36)
[2018-08-07] MEDS: levetiracetam 250mg tablet PO SCH ×2 (07:36→20:15)
[2018-08-07] MEDS: lactobacillus rhamnosus 10,000 MMU CELLS/CAPSULE PO SCH ×2 (07:36→20:15)
[2018-08-07] MEDS: pantoprazole 40mg Tablet.DR PO SCH (07:36)
[2018-08-07] MEDS: acetaZOLAMIDE 250mg tablet PO SCH ×2 (07:36→20:15)
[2018-08-07] MEDS: heparin, porcine 5000 units/ml vial SQ SCH ×2 (07:36→20:15)
[2018-08-07] MEDS: ipratropium/albuterol 3ml nebule IH PRN (08:25)
[2018-08-07] MEDS: budesonide 0.5mg/2ml UD nebule IH SCH ×2 (08:25→21:04)
[2018-08-07 10:22] VITALS: BP 131/73
--- NOTE | 2018-08-07 11:33 | NUR ---
PATIENT HAS BEEN PLEASANT AND COOPERATIVE AND HAS HAS NO BEHAVIORS AT THIS TIME. PATIENT USING CALL LIGHT APPROPRIATELY AND WAITING FOR HELP FOR TRANSFERS. PATIENT APPEARS TO BE RESTING IN BED COMFORTABLY WITH EYES CLOSED AND RESPIRATIONS EVEN AND UNLABORED. BED IS LOW AND LOCKED AND CALL LIGHT WITHIN HIS REACH.
--- NOTE | 2018-08-07 14:33 | NUR ---
PATIENT SMILING AND AGREED TO AMBULATE. PATIENT AMBULATED WITH FRONT WHEEL WALKER TO HIGH BACK WHEELCHAIR AND WHEELED HIMSELF AROUND ENTIRE ORTHO/NEURO FLOOR. PATIENT SMILING AND CONVERSING WITH STAFF HE PASSES BY.
--- NOTE | 2018-08-07 15:40 | NUR ---
Problems reprioritized. Patient report given, questions answered & plan of care reviewed with MANI MATTHEWS.
--- NOTE | 2018-08-07 18:05 | NUR ---
Patient in room ORTHO 4006. I have received report from Chloe SINGLETON and had the opportunity to ask questions and assume patient care. Addendum: 08/08/18 at 0210 by Zoey Morris RN Wrong patient room number. Should be ORTHO 4009
[2018-08-07] MEDS: albuterol 2.5 MG/3 ML nebule NEB PRN (21:04)
[2018-08-07 22:00] VITALS: BP 127/68
[2018-08-08 06:00] VITALS: BP 125/55
--- NOTE | 2018-08-08 06:15 | NUR ---
Problems reprioritized. Patient report given to Yeison SINGLETON, questions answered & plan of care reviewed with her.
--- NOTE | 2018-08-08 06:47 | NUR ---
Patient in room ORTHO 4008. I have received report from Zoey SINGLETON and had the opportunity to ask questions and assume patient care.
[2018-08-08] MEDS: K and/or MAG REPLACEMENT MC SCH (07:01)
[2018-08-08] MEDS: aspirin 81mg tablet.DR PO SCH (07:59)
[2018-08-08] MEDS: levetiracetam 250mg tablet PO SCH ×2 (07:59→20:00)
[2018-08-08] MEDS: folic acid 1mg tablet PO SCH (08:00)
[2018-08-08] MEDS: acetaZOLAMIDE 250mg tablet PO SCH ×2 (08:00→20:00)
[2018-08-08] MEDS: lactobacillus rhamnosus 10,000 MMU CELLS/CAPSULE PO SCH ×2 (08:00→20:00)
[2018-08-08] MEDS: pantoprazole 40mg Tablet.DR PO SCH (08:01)
[2018-08-08] MEDS: lisinopril 2.5mg tablet PO SCH (08:01)
[2018-08-08] MEDS: heparin, porcine 5000 units/ml vial SQ SCH ×2 (08:03→20:00)
[2018-08-08 09:47] VITALS: BP 107/59
[2018-08-08] MEDS: budesonide 0.5mg/2ml UD nebule IH SCH ×2 (10:50→20:36)
[2018-08-08] MEDS: ipratropium/albuterol 3ml nebule IH PRN (10:50)
[2018-08-08 18:00] VITALS: BP 111/61
--- NOTE | 2018-08-08 18:09 | NUR ---
Problems reprioritized. Patient report given, questions answered & plan of care reviewed with Billie Jimenez RN.
--- NOTE | 2018-08-08 21:33 | NUR ---
Patient in room ORTHO 4008. I have received report from MANI Latham and had the opportunity to ask questions and assume patient care.
[2018-08-08 22:00] VITALS: BP 116/58
[2018-08-09 06:00] VITALS: BP 141/76
--- NOTE | 2018-08-09 06:25 | NUR ---
Problems reprioritized. Patient report given, questions answered & plan of care reviewed with MANI Latham.
--- NOTE | 2018-08-09 06:30 | NUR ---
Patient in room ORTHO 4008. I have received report from Billie Jimenez RN and had the opportunity to ask questions and assume patient care.
[2018-08-09] MEDS: K and/or MAG REPLACEMENT MC SCH (07:08)
[2018-08-09] MEDS: heparin, porcine 5000 units/ml vial SQ SCH (07:36)
[2018-08-09] MEDS: lactobacillus rhamnosus 10,000 MMU CELLS/CAPSULE PO SCH (07:37)
[2018-08-09] MEDS: acetaZOLAMIDE 250mg tablet PO SCH (07:37)
[2018-08-09] MEDS: levetiracetam 250mg tablet PO SCH (07:37)
[2018-08-09] MEDS: folic acid 1mg tablet PO SCH (07:37)
[2018-08-09] MEDS: pantoprazole 40mg Tablet.DR PO SCH (07:37)
[2018-08-09] MEDS: aspirin 81mg tablet.DR PO SCH (07:37)
[2018-08-09] MEDS: lisinopril 2.5mg tablet PO SCH (07:38)
[2018-08-09] MEDS: budesonide 0.5mg/2ml UD nebule IH SCH (08:52)
[2018-08-09 10:00] VITALS: BP 112/66
--- NOTE | 2018-08-09 10:27 | NUR ---
report called to MARIANELA at [facility], all questions answered
--- NOTE | 2018-08-09 10:45 | NUR ---
Patient discharged to [facility] via medical transport, patient stable for transport, report called, medications sent with [employer] personal along with patient belongings
== END 2018-08-09 10:35 | DRG 871 ==
LOC: ER 13:25 → ORTHO 4S 19:31 → CMPBEDREQ 19:34 → ORTHO 4S 07-26 15:00
PROVIDERS: ADMIT Internal Medicine; ATTEND Family Medicine
DX: A41.9 Sepsis, unspecified organism (principal); G92 Toxic encephalopathy; N39.0 Urinary tract infection, site not specified; B96.20 Unspecified Escherichia coli [E. coli] as the cause of diseases classified elsewhere; D64.9 Anemia, unspecified; E78.5 Hyperlipidemia, unspecified; F15.10 Other stimulant abuse, uncomplicated; F17.200 Nicotine dependence, unspecified, uncomplicated; F10.20 Alcohol dependence, uncomplicated; G40.909 Epilepsy, unspecified, not intractable, without status epilepticus; I10 Essential (primary) hypertension; J44.9 Chronic obstructive pulmonary disease, unspecified; K21.9 Gastro-esophageal reflux disease without esophagitis; R09.02 Hypoxemia; Z86.73 Personal history of transient ischemic attack (TIA), and cerebral infarction without residual deficits; Z91.19 Patient's noncompliance with other medical treatment and regimen; Z79.899 Other long term (current) drug therapy; Z79.82 Long term (current) use of aspirin; E87.6 Hypokalemia; Z71.6 Tobacco abuse counseling
CPT/HCPCS: 36415; 70450; 71045; 74176; 80048; 80053; 80061; 80185; 80305; 80320; 81001; 83605; 83735; 84132; 84145; 84443; 85025; 85610; 85730; 87040; 87070; 87077; 87088; 87186; 93005; 94640; 94667; 94668; 94760; 96365; 96375; 97110; 97116; 97162; 97530; 99285; C9113; G0378; J0360; J0696; J1644; J2060; J7030; J7626